=== PATIENT | male | born 1965 | race Two or more races ===

== ENCOUNTER 2024-09-23 09:22 | Emergency (ER) | payer MEDICAID, SELFPAY ==
[2024-09-23 10:09] VITALS: BP 137/86; PULSE 81; RESP 19; TEMP 37.1; O2SAT 98; BMI 26.9
--- NOTE | 2024-09-23 10:22 | XR_ITS ---
Examination: Testicular sonography complete TECHNIQUE: Grayscale sonographic images testes, assessment arterial inflow venous outflow Doppler spectral analysis carful analysis Exam date and time: September 23, 2024 1220 hours INDICATIONS: Right flank pain radiating to the right testis beginning 3 days ago. FINDINGS: Right testis 4.5 x 2.3 x 3.4 cm Epididymis 13 mm Arterial flow testicle. No testicular mass Left testis 4.5 x 2.3 x 2.7 cm Epididymis 14 mm Arterial flow testicle. No testicular mass Mild bilateral hydroceles IMPRESSION: No testicular torsion or testicular mass Mild bilateral hydroceles
--- NOTE | 2024-09-23 10:22 | XR_ITS ---
Examination: CT abdomen and pelvis without contrast. Coronal 3-D reconstructions. Sagittal 2-D reconstructions. Date and time of exam:September 23, 2024 1050 hours INDICATIONS: Right flank pain radiating to the right testicle beginning 3 days ago CTDI: vol (mGy): 8.29 DLP: (mGycm): 560 Technique: Axial images of the abdomen have been obtained, 3 mm slice thickness Intravenous contrast material has not been administered. Low dose protocols were performed. One or more of the following dose reduction techniques were used; automated exposure control, adjustment of the mA and/or KV according to patient size, use of iterative reconstruction technique. Findings: No focal liver or splenic lesions No gallstones No pancreatic or adrenal mass No renal or ureteral calculi, no hydronephrosis Aorta normal size Normal appendix No bowel obstruction Scattered colonic diverticulosis no diverticulitis No bladder mass or bladder calculi Tiny fat-containing inguinal hernias IMPRESSION: No renal or ureteral calculi, no hydronephrosis Normal appendix No bladder mass or bladder calculi Consider testicular sonography follow-up
--- NOTE | 2024-09-23 10:23 | XR_ITS ---
Examination: Lumbar spine 3 views Technique one AP lateral coned lateral lower lumbar spine 3 views Exam date and time: September 23, 2024 1003 hours INDICATIONS: Low back pain radiating to the testicles 2 days. FINDINGS: Adequate alignment lumbar vertebral bodies Mild lumbar spondylosis No lumbar fracture No significant lumbar disc narrowing No spondylolisthesis IMPRESSION: Mild lumbar spondylosis
--- NOTE | 2024-09-23 10:23 | PD.EDRME ---
Rapid Medical Screening Exam [facility] Arrival date/time: 09/23/24 09:22 59-year-old male presents to the emergency department with complaints of right flank pain that radiates frontal and into testicles for 2 days. No nausea no vomiting no fever. I have greeted and performed a focused initial assessment of this patient. Initial appropriate labs ordered at this time. A comprehensive ED assessment and evaluation of the patient and analysis of all test and completion of medical decision making process will be conducted by additional ED provider. Chief Complaint: Abdominal Pain Time Seen by Provider: 09/23/24 10:03 Vital signs: Vital Signs Temperature 98.8 F 09/23/24 10:09 Pulse Rate 81 09/23/24 10:09 Respiratory Rate 19 09/23/24 10:09 Blood Pressure 137/86 H 09/23/24 10:09 Pulse Oximetry (%) 98 09/23/24 10:09 Oxygen Delivery Method Room Air 09/23/24 10:09
[2024-09-23 10:34] LABS: Collection Type, Urine Clean Catch; RBC,Urine 0 /hpf (0-3)
[2024-09-23 10:49] LABS: Bilirubin,Urine Negative (Negative); Blood,Urine Negative (Negative); Clarity,Urine Clear (Clear/Hazy); Color,Urine Lt-Yellow (Lt Yel-Yel); Glucose, Urine 4+ (Negative); Ketones,Urine 1+ (Negative); Leukocyte Esterase,Urine Negative (Negative); Nitrite,Urine Negative (Negative); PH,Urine 5.5 (5.0-7.0); Protein,Urine Negative (Neg - Trace); Specific Gravity,Urine 1.028 (1.001-1.035); Squamous Epithelial Cell,Urine < 1 /hpf (0-5); Urobilinogen,Urine Negative mg/dL (0.0-1.0); WBC,Urine 1 /hpf (0-5)
[2024-09-23 11:28] LABS: Basophils % (Auto) 1 % (0-2.5); Eosinophils # (Auto) 0.2 Thou/mm3 (0.0-0.5); Eosinophils % (Auto) 3 % (0-10); Hematocrit 44.6 % (41.0-53.0); Hemoglobin 15.1 g/dL (13.5-16.0); Immature Granulocytes % (Auto) 0 % (0-0); Immature Granulocytes Auto 0.03 Thou/mm3 (0.00-0.00); Lymphocytes # (Auto) 1.5 Thou/mm3 (1.0-4.8); Lymphocytes % (Auto) 23 % (10-50); Mean Corpuscular HGB Conc 33.9 g/dl (31.0-37.0); Mean Corpuscular Volume 89 fL (80-100); Monocytes # (Auto) 0.5 Thou/mm3 (0.0-0.8); Monocytes % (Auto) 7 % (0-12); Neutrophils # (Auto) 4.5 Thou/mm3 (1.8-7.7); Neutrophils % (Auto) 67 % (37-80); Nucleated Red Blood Cell % 0 /100 WBC (0); Platelet Count 193 Thou/mm3 (140-440); RDW Standard Deviation 40.8 fL (35.1-43.9); Red Blood Count 5.04 Miln/mm3 (4.50-5.90); White Blood Count 6.8 Thou/mm3 (3.8-10.6)
[2024-09-23 11:45] LABS: Alanine Aminotransferase 15 U/L (10-49); Albumin, Serum 4.7 gm/dL (3.4-4.8); Albumin/Globulin Ratio 1.5 (1.2-2.2); Alkaline Phosphatase 111 U/L (46-116); Anion Gap 8 (7-16); Aspartate Amino Transferase 17 U/L (0-34); BUN/Creatinine Ratio 16 Ratio (12-20); Bilirubin,Total 0.7 mg/dL (0.3-1.2); Blood Urea Nitrogen 13 mg/dL (9-23); Calcium 9.4 mg/dL (8.3-10.6); Calcium (Corrected) 9.4 mg/dL (8.5-10.1); Carbon Dioxide 26.8 mMol/L (20.0-31.0); Chloride 102 mMol/L (98-107); Creatinine (Component) 0.8 mg/dL (0.6-1.3); Estimated Creatinine Clearance 104.6 mL/min (>60); Globulin 3.2 gm/dL (2.3-3.5); Glucose 140 mg/dL (74-106); Lipase 28 U/L (12-53); Osmolality,Calculated 275 (275-295); Potassium 4.5 mMol/L (3.4-5.1); Sodium 137 mMol/L (136-145); Total Protein 7.9 gm/dL (5.7-8.2); eGFR > 60 See Note
[2024-09-23 14:10] VITALS: BP 142/92; PULSE 76; RESP 17; TEMP 36.9; O2SAT 97
--- NOTE | 2024-09-23 14:34 | EDNOTE_ITS ---
ED Abdominal Pain RME/HPI General Chief Complaint: Abdominal Pain Stated complaint: ABD PAIN ON HIS RIGHT SIDE Time seen by provider: 09/23/24 10:03 Arrival date/time: 09/23/24 09:22 RME / HPI RME / HPI narrative: 09/23/24 09:22 59-year-old male presents to the emergency department with complaints of right flank pain that radiates frontal and into testicles for 2 days. No nausea no vomiting no fever. I have greeted and performed a focused initial assessment of this patient. Initial appropriate labs ordered at this time. A comprehensive ED assessment and evaluation of the patient and analysis of all test and completion of medical decision making process will be conducted by additional ED provider. DR. TREVER MARISCAL ED EVALUATION 59 year old male with history of diabetes presents to the ED for evaluation of right flank pain beginning 2 days ago. Described as aching in sensation that intermittently radiates down to his scrotum beginning yesterday. Denies any history of similar pain. Denies fevers, chills, chest pain, cough, shortness of breath, nausea, vomiting, diarrhea, or urinary symptoms. Related Data Allergies Allergy/AdvReac Type Severity Reaction Status Date / Time No Known Allergies Allergy Verified 09/23/24 09:26 Review of Systems Review of Systems Narrative Review of Systems: GEN: No fever, no chills, no weight loss EYES: No discharge, no visual changes, no pain HEENT: No ear pain, no congestion, no sore throat PULM: No shortness of breath, no cough, no congestion CV: No chest pain, no dyspnea on exertion, no palpitations GI: No nausea, no vomiting, no diarrhea, + pain, no constipation : +scrotal pain. No frequency, no urgency and no dysuria MUSC/SKEL No joint pain, + back pain SKIN: No rash NEURO: No weakness, no headache Past Medical History Social History SMOKING STATUS: Never smoker ED Exam Narrative Physical exam: GENERAL APPEARANCE: Well hydrated, well nourished, in no acute distress. VITALS: All vitals were reviewed and the pulse ox is 97% on room air which is normal according to my interpretation. HEENT: Normocephalic, atramatic, EOMI, EACs are patent. There is no bulge or retraction. Throat without erythema or exudate. Moist oromucosa. No jaundice NECK: Supple, no JVD or bruits. CARDIOVASCULAR: Heart regular without S3-S4 or murmur. No rubs or gallops. LUNGS/CHEST: Clear to auscultation bilaterally. No rales, rhonchi, or wheezing. Normal inspection. ABDOMEN: Soft, nontender, with normal bowel sounds. No pulsatile masses. No rebound, rigidity, or guarding. No incarcerated hernia. Normal inspection and palpation. EXTREMITIES: Normal inspection and palpation. No edema, clubbing, or cyanosis. Intact CSM SKIN: Warm and dry without rashes. Normal inspection. MUSCULOSKELETAL: Normal inspection. No gross deformity, full ROM all extremities NEURO: Alert and oriented x3. Cranial nerves II through XII grossly intact. There are no other motor or sensory deficits noted. PSYCHIATRIC: Normal mood and affect. No psychosis. Course Quality Measures none Orders Category Date Time Status CT abdomen pelvis wo con Stat Exams 09/23/24 10:22 Completed US testicular Stat Exams 09/23/24 10:22 Completed XR lumbar spine 2-3V Stat Exams 09/23/24 10:23 Completed CBC Stat Lab 09/23/24 11:21 Completed Comprehensive Metabolic Panel Stat Lab 09/23/24 11:21 Completed Lipase Stat Lab 09/23/24 11:21 Completed Urinalysis Stat Lab 09/23/24 10:30 Completed Vital Signs Vital signs: Vital Signs Temperature 98.8 F 09/23/24 10:09 Pulse Rate 81 09/23/24 10:09 Respiratory Rate 19 09/23/24 10:09 Blood Pressure 137/86 H 09/23/24 10:09 Pulse Oximetry (%) 98 09/23/24 10:09 Oxygen Delivery Method Room Air 09/23/24 10:09 Abdominal Pain MDM MDM Narrative [facility] Narrative:: IAlexsandra, yazmin scribing for and in the presence of Dr. Davies. CBC is negative. CMP and lipase are negative. UA is negative for bacteria. Lumbar spine x-rays interpreted by me: Normal alignment. No fracture. No dislocation. No collapse discs CT abdomen and pelvic reviewed by and interpreted by me as follow: No free air. No free fluid. No obstruction. Some degree of constipation. No stranding. Abdominal exam is completely benign. I am giving the patient copy of his x-ray report, CT report and ultrasound report to follow-up with PMD. Patient data External records reviewed:: [facility] previous records (Per EMR review, no previous visits for review ) Clinical information provided by:: patient Social determinants that could affect healthcare access:: alcohol use Patient has the following chronic illnesses:: Diabetes How is presenting disease/condition affected by chronic disease/condition?: uneffected by Evaluation data The following diagnostics were reviewed and interpreted by me:: lab results and radiology exam(s) Lab and/or radiology exams considered but not ordered:: None Interpretation Summary: Ordering Physician: Vero Conrad Date of Service: 09/23/24 Procedure(s): CT abdomen pelvis wo con Accession Number(s): [id number] cc: Era Tenorio; Kulwant Berg MD; Vero Conrad~ Examination: CT abdomen and pelvis without contrast. Coronal 3-D reconstructions. Sagittal 2-D reconstructions. Date and time of exam:September 23, 2024 1050 hours INDICATIONS: Right flank pain radiating to the right testicle beginning 3 days ago CTDI: vol (mGy): 8.29 DLP: (mGycm): 560 Technique: Axial images of the abdomen have been obtained, 3 mm slice thickness Intravenous contrast material has not been administered. Low dose protocols were performed. One or more of the following dose reduction techniques were used; automated exposure control, adjustment of the mA and/or KV according to patient size, use of iterative reconstruction technique. Findings: No focal liver or splenic lesions No gallstones No pancreatic or adrenal mass No renal or ureteral calculi, no hydronephrosis Aorta normal size Normal appendix No bowel obstruction Scattered colonic diverticulosis no diverticulitis No bladder mass or bladder calculi Tiny fat-containing inguinal hernias IMPRESSION: No renal or ureteral calculi, no hydronephrosis Normal appendix No bladder mass or bladder calculi Consider testicular sonography follow-up Dictated By: Kulwant Berg MD Signed By: <Electronically signed by Kulwant Berg MD in OV> 09/23/24 8170 Ordering Physician: Vero Conrad Date of Service: 09/23/24 Procedure(s): US testicular Accession Number(s): [id number] cc: Era Tenorio; Kulwant Berg MD; Vero Conrad~ Examination: Testicular sonography complete TECHNIQUE: Grayscale sonographic images testes, assessment arterial inflow venous outflow Doppler spectral analysis carful analysis Exam date and time: September 23, 2024 1220 hours INDICATIONS: Right flank pain radiating to the right testis beginning 3 days ago. FINDINGS: Right testis 4.5 x 2.3 x 3.4 cm Epididymis 13 mm Arterial flow testicle. No testicular mass Left testis 4.5 x 2.3 x 2.7 cm Epididymis 14 mm Arterial flow testicle. No testicular mass Mild bilateral hydroceles IMPRESSION: No testicular torsion or testicular mass Mild bilateral hydroceles Dictated By: Kulwant Berg MD Signed By: <Electronically signed by Kulwant Berg MD in OV> 09/23/24 1245 Ordering Physician: Vero Conrad Date of Service: 09/23/24 Procedure(s): XR lumbar spine 2-3V Accession Number(s): [id number] cc: Era Tenorio; Kulwant Berg MD; Vero Conrad~ Examination: Lumbar spine 3 views Technique one AP lateral coned lateral lower lumbar spine 3 views Exam date and time: September 23, 2024 1003 hours INDICATIONS: Low back pain radiating to the testicles 2 days. FINDINGS: Adequate alignment lumbar vertebral bodies Mild lumbar spondylosis No lumbar fracture No significant lumbar disc narrowing No spondylolisthesis IMPRESSION: Mild lumbar spondylosis Dictated By: Kulwant Berg MD Signed By: <Electronically signed by Kulwant Berg MD in OV> 09/23/24 1100 Medications / Prescriptions Medications or Prescriptions considered but not ordered:: None Medication administrations:: See above Consultations Consultation(s) initiated? (list below): No Diagnosis Differential diagnosis abdominal pain: abdominal pain, acute appendicitis, calculus of kidney, constipation, gastroenteritis and small bowel obstruction Most likely diagnosis given after review of the tests above:: Abdominal pain Admission Indicated Admission indicated?: not indicated Admission Request Was there a request for admission?: No Disposition Plan Disposition Plan: Discharge Discharge Attestation Discharge Attestation: The patient and all family members were given an opportunity to ask questions and understood the discharge instructions. Discharge instructions specifically effects, indications for sooner follow up or return to the emergency department, and the expected course of current diagnosis. Patient condition: Stable Discharge Plan Plan Patient Disposition: HOME (Self Care) Disposition Comment: Stable for DC home Prescriptions/Referrals Referrals: Era Tenorio CUT PRESSMAN [Primary Care Provider] - In 1 week Problem List Clinical Impression: Abdominal pain Patient/Caregiver Discharge Instructions Education Materials: ED Flank Pain, Uncertain Cause Additional Instructions: Motrin can be taken for pain. It appears that you may be constipated. Please try OTC laxative such as milk of magnesia or magnesium citrate. Follow-up with your doctor in 3 days. Return to nearest ER if condition worsens or if new symptoms develop. Print Language: Australian Stand Alone Forms: Flavia Award Info., Patient Portal Info Letter
== END 2024-09-23 14:50 | disposition home or self-care (01) ==
PROVIDERS: Nurse Practitioner Primary Care; Emergency Provider Emergency Medicine; PCP Nurse Practitioner Family
DX: K59.00 Constipation, unspecified (principal); M47.816 Spondylosis without myelopathy or radiculopathy, lumbar region; N43.3 Hydrocele, unspecified
CPT/HCPCS: 36415; 72100; 74176; 76870; 80053; 81001; 83690; 85025; 99284

== ENCOUNTER 2024-11-06 07:26 | Emergency (ER) | payer MEDICAID, SELFPAY ==
[2024-11-06 07:36] VITALS: BP 143/88; PULSE 71; RESP 16; TEMP 36.7; O2SAT 98; BMI 32.1
--- NOTE | 2024-11-06 07:44 | XR_ITS ---
Examination: CT abdomen and pelvis without contrast. Coronal 3-D reconstructions. Sagittal 2-D reconstructions. Date and time of exam:November 06, 2024 0834 hours Comparison September 23, 2024 INDICATIONS: Onset right-sided flank pain beginning this morning CTDI: vol (mGy): 7.79 DLP: (mGycm): 491 Technique: Axial images of the abdomen have been obtained, 3 mm slice thickness Intravenous contrast material has not been administered. Low dose protocols were performed. One or more of the following dose reduction techniques were used; automated exposure control, adjustment of the mA and/or KV according to patient size, use of iterative reconstruction technique. Findings: No focal liver or splenic lesions Contracted gallbladder No pancreatic or adrenal mass Minimal perinephric stranding Normal appendix No renal or ureteral calculi, no hydronephrosis No bowel obstruction or diverticulitis Mild thickening of the anterior urinary bladder wall up to 4 mm Transverse prostate dimension 4 cm Moderate osteopenia IMPRESSION: No renal or ureteral calculi, no hydronephrosis Minimal perinephric stranding Normal appendix Mild thickening of the anterior urinary bladder wall, cystitis included in the differential
--- NOTE | 2024-11-06 07:45 | EDNOTE_ITS ---
ED Back Injury Pain RME/HPI General Chief Complaint: Back Pain/Injury Stated Complaint: RIGHT FLANK/BACK PAIN X 1 WK SINCE LAST ER VISIT Time Seen by Provider: 11/06/24 07:40 Source: patient Arrival date/time: 11/06/24 07:26 59-year-old male with no known medical history presents to the emergency room with a chief complaint of right-sided flank pain and back pain x 1 week Mode of arrival: ambulatory Limitations: no limitations Related Data Allergies Allergy/AdvReac Type Severity Reaction Status Date / Time No Known Allergies Allergy Verified 11/06/24 07:28 Review of Systems Review of Systems Systems Reviewed: All systems reviewed, normal except as documented Constitutional Constitutional: Reports system reviewed and no additional complaints, except as documented, Denies fatigue, Denies fever(s), Denies headache(s) and Denies weakness Eyes Eyes: Reports system reviewed and no additional complaints, except as documented, Denies blurry vision and Denies change in vision ENT Ears, Nose, Mouth, and Throat: Reports system reviewed and no additional complaints, except as documented, Denies otalgia, Denies headache(s), Denies nasal congestion, Denies throat swelling and Denies vertigo Cardiovascular Cardiovascular: Reports system reviewed and no additional complaints, except as documented, Denies chest pain, Denies dyspnea and Denies dyspnea on exertion Respiratory Respiratory: Reports system reviewed and no additional complaints, except as documented, Denies chest congestion, Denies cough, Denies dyspnea, Denies dyspnea on exertion and Denies wheezing Gastrointestinal Gastrointestinal: Reports system reviewed and no additional complaints, except as documented, Denies abdominal pain, Denies cramping, Denies nausea and Denies vomiting Genitourinary Genitourinary: Reports system reviewed and no additional complaints, except as documented, Denies dysuria and Denies hematuria Musculoskeletal Musculoskeletal: Reports system reviewed and no additional complaints, except as documented and Denies back pain Integumentary/Breasts Skin/Breast: Reports system reviewed and no additional complaints, except as documented and Denies wounds Neurologic Neurologic: Reports system reviewed and no additional complaints, except as documented, Denies confusion, Denies headache(s), Denies lack of coordination, Denies vertigo and Denies weakness Psychiatric Psychiatric: Reports system reviewed and no additional complaints, except as documented, Denies anxiety, Denies confusion, Denies depression, Denies paranoia, Denies suicidal ideation and Denies tactile hallucinations Endocrine Endocrine: Reports system reviewed and no additional complaints, except as documented and Denies fatigue Hematologic/Lymphatic Hematologic/Lymphatic: Reports system reviewed and no additional complaints, except as documented and Denies lymphadenopathy Allergic/Immunologic Allergic/Immunologic: Reports system reviewed and no additional complaints, except as documented, Denies throat swelling, Denies urticaria and Denies wheezing ED Exam General Limitations: Present no limitations General appearance: Present alert and in no apparent distress Head Head exam: Present atraumatic Eye Eye exam: Present normal appearance, PERRL and EOMI ENT ENT exam: Present normal exam, normal oropharynx and mucous membranes moist Neck Neck exam: Present normal inspection, full ROM and trachea midline Chest Chest inspection: Present normal inspection and symmetric chest wall rise Respiratory Respiratory exam: Present normal lung sounds bilaterally Cardiovascular Cardiovascular exam: Present regular rate, normal rhythm and normal heart sounds Abdominal Exam Abdominal exam: Present soft and normal bowel sounds Extremities Exam Extremities exam: Present normal inspection and full ROM Back Exam Back exam: Present normal inspection, full ROM, CVA tenderness (R) and vertebral tenderness Neurological Exam Neurological exam: Present alert, oriented X3 and CN II-XII intact Psychiatric Psychiatric exam: Present normal affect and normal mood Skin Skin exam: Present warm, dry, intact and normal color Course Quality Measures none Orders Category Date Time Status CT abdomen pelvis wo con Stat Exams 11/06/24 07:44 Completed CBC Stat Lab 11/06/24 07:55 Completed CMP [Comprehensive Metabolic Panel] Stat Lab 11/06/24 07:55 Completed Lipase Stat Lab 11/06/24 07:55 Completed UA [Urinalysis] Stat Lab 11/06/24 08:19 Completed Urine Culture Stat Lab 11/06/24 08:19 Received Ketorolac Inj [Toradol Inj] Med 11/06/24 07:44 Discontinued 30 mg IM X1 ONE Vital Signs Vital signs: Vital Signs Temperature 98.1 F 11/06/24 07:36 Pulse Rate 71 11/06/24 07:36 Respiratory Rate 16 11/06/24 07:36 Blood Pressure 143/88 H 11/06/24 07:36 Pulse Oximetry (%) 98 11/06/24 07:36 Oxygen Delivery Method Room Air 11/06/24 07:36 O2 saturation 98% within normal limits Back Pain / Injury MDM Narrative MDM Narrative:: 59-year-old male with no known medical history presents to the emergency room with a chief complaint of right-sided flank pain and back pain x 1 week Patient is hemodynamically stable and in no apparent distress Physical examination shows right-sided CVA tenderness. Patient denies any pain that radiates to the right lower abdomen. Patient denies any dysuria or any discharge. The patient has a soft nontender abdomen. CT of the abdomen and pelvis was completed and there were no acute findings. CBC CMP and UA were negative for any acute findings Patient was discharged and educated to follow-up with primary care provider and return to the emergency room for any evidence of worsening signs or symptoms Patient data [facility] records [facility]:: [facility] Clinical information provided by:: patient Social determinants that could affect healthcare access:: none Patient has the following chronic illnesses:: No chronic illness How is presenting disease/condition affected by chronic disease/condition?: no chronic disease Evaluation data The following diagnostics were reviewed and interpreted by me:: lab results and radiology exam(s) Lab and/or radiology exams considered but not ordered:: Labs and radiology exams considered and ordered Interpretation Summary: CT abdomen and pelvis-Findings: No focal liver or splenic lesions Contracted gallbladder No pancreatic or adrenal mass Minimal perinephric stranding Normal appendix No renal or ureteral calculi, no hydronephrosis No bowel obstruction or diverticulitis Mild thickening of the anterior urinary bladder wall up to 4 mm Transverse prostate dimension 4 cm Moderate osteopenia IMPRESSION: No renal or ureteral calculi, no hydronephrosis Minimal perinephric stranding Normal appendix Mild thickening of the anterior urinary bladder wall, cystitis included in the differential Medications / Prescriptions Medications or Prescriptions considered but not ordered:: Medication given Medication administrations:: Medication Administration History Discontinued Medications Ketorolac Tromethamine (Ketorolac Inj 60 Mg/2 Ml Vial) 30 mg IM X1 ONE Stop: 11/06/24 07:45 Last Admin: 11/06/24 07:49 Dose: 30 mg Documented By: KM Medication given Consultations Consultation(s) initiated? (list below): No Diagnosis Differential diagnosis back pain/injury: sciatica, strain of lumbar region, renal colic, thoracic back pain, discitis and other Most likely diagnosis given after review of the tests above:: Lumbar back pain Admission Indicated Admission indicated?: not indicated Admission Request Was there a request for admission?: No Disposition Plan Disposition Plan: Discharge Discharge Attestation Discharge Attestation: The patient and all family members were given an opportunity to ask questions and understood the discharge instructions. Discharge instructions specifically effects, indications for sooner follow up or return to the emergency department, and the expected course of current diagnosis. Patient condition: Stable Discharge Plan Plan Patient Disposition: HOME (Self Care) Disposition Comment: Stable Prescriptions/Referrals Referrals: Era Tenorio MD [Primary Care Provider] - In 1 week Problem List Clinical Impression: Strain of lumbar region Patient/Caregiver Discharge Instructions Education Materials: ED Back Sprain/Strain Additional Instructions: Por favor, consulte con mathis m?dico de cabecera en las pr?ximas 24 a 48 horas. Se realiz? lubna tomograf?a computarizada de abdomen y pelvis y no se detectaron hallazgos agudos. No hay c?lculos renales. Mathis an?lisis de donny y orina no detectaron hallazgos agudos. Por favor, consulte con mathis m?dico de cabecera para un mejor manejo de mathis dolor de espalda. Si hay evidencia de empeoramiento de los signos o s?ntomas, regrese a la filipe de emergencias de inmediato. Print Language: Slovak Stand Alone Forms: Flavia Award Info., Patient Portal Info Letter PA/CLINICAL REHAB SPECIALIST Supervising Physician PA/CLINICAL REHAB SPECIALIST Supervising Physician: Dr. Sebastian
[2024-11-06] MEDS: KETOROLAC INJ 60 MG/2 ML VIAL 30 MG IM (07:49)
[2024-11-06 08:36] LABS: Collection Type, Urine Clean Catch
[2024-11-06 08:49] LABS: Basophils # (Auto) 0.1 Thou/mm3 (0.0-0.2); Basophils % (Auto) 1 % (0-2.5); Eosinophils # (Auto) 0.3 Thou/mm3 (0.0-0.5); Eosinophils % (Auto) 4 % (0-10); Hematocrit 40.4 % (41.0-53.0); Hemoglobin 13.9 g/dL (13.5-16.0); Immature Granulocytes % (Auto) 0 % (0-0); Immature Granulocytes Auto 0.01 Thou/mm3 (0.00-0.00); Lymphocytes # (Auto) 2.3 Thou/mm3 (1.0-4.8); Lymphocytes % (Auto) 33 % (10-50); Mean Corpuscular HGB Conc 34.4 g/dl (31.0-37.0); Mean Corpuscular Hemoglobin 30.5 pg (25.0-35.0); Mean Corpuscular Volume 89 fL (80-100); Monocytes # (Auto) 0.6 Thou/mm3 (0.0-0.8); Monocytes % (Auto) 9 % (0-12); Neutrophils # (Auto) 3.8 Thou/mm3 (1.8-7.7); Neutrophils % (Auto) 54 % (37-80); Nucleated Red Blood Cell % 0 /100 WBC (0); Platelet Count 189 Thou/mm3 (140-440); RDW Standard Deviation 41.3 fL (35.1-43.9); Red Blood Count 4.56 Miln/mm3 (4.50-5.90); White Blood Count 7.1 Thou/mm3 (3.8-10.6)
[2024-11-06 09:07] LABS: Alanine Aminotransferase 18 U/L (10-49); Albumin, Serum 4.4 gm/dL (3.4-4.8); Albumin/Globulin Ratio 1.6 (1.2-2.2); Alkaline Phosphatase 99 U/L (46-116); Anion Gap 8 (7-16); Aspartate Amino Transferase 24 U/L (0-34); BUN/Creatinine Ratio 23 Ratio (12-20); Bilirubin,Total 0.7 mg/dL (0.3-1.2); Blood Urea Nitrogen 16 mg/dL (9-23); Calcium 9.7 mg/dL (8.3-10.6); Calcium (Corrected) 9.7 mg/dL (8.5-10.1); Carbon Dioxide 28.3 mMol/L (20.0-31.0); Chloride 106 mMol/L (98-107); Creatinine (Component) 0.7 mg/dL (0.6-1.3); Estimated Creatinine Clearance 118.1 mL/min (>60); Globulin 2.7 gm/dL (2.3-3.5); Glucose 116 mg/dL (74-106); Lipase 32 U/L (12-53); Osmolality,Calculated 285 (275-295); Potassium 3.8 mMol/L (3.4-5.1); Sodium 142 mMol/L (136-145); Total Protein 7.1 gm/dL (5.7-8.2); eGFR > 60 See Note
[2024-11-06 09:09] LABS: Bilirubin,Urine Negative (Negative); Blood,Urine Negative (Negative); Clarity,Urine Clear (Clear/Hazy); Color,Urine Lt-Yellow (Lt Yel-Yel); Glucose, Urine 4+ (Negative); Ketones,Urine Negative (Negative); Leukocyte Esterase,Urine Negative (Negative); Nitrite,Urine Negative (Negative); PH,Urine 5.5 (5.0-7.0); Protein,Urine Negative (Neg - Trace); RBC,Urine 2 /hpf (0-3); Specific Gravity,Urine 1.035 (1.001-1.035); Squamous Epithelial Cell,Urine < 1 /hpf (0-5); Urobilinogen,Urine Negative mg/dL (0.0-1.0); WBC,Urine 1 /hpf (0-5)
== END 2024-11-06 10:52 | disposition home or self-care (01) ==
PROVIDERS: Nurse Practitioner Family; Emergency Provider Emergency Medicine; PCP Obstetrics & Gynecology
DX: S39.012A Strain of muscle, fascia and tendon of lower back, initial encounter (principal); X58.XXXA Exposure to other specified factors, initial encounter
CPT/HCPCS: 36415; 74176; 80053; 81001; 83690; 85025; 87086; 96372; 99284; J1885

== ENCOUNTER 2025-07-11 17:15 | Inpatient (IN) | payer MEDICAID, SELFPAY ==
--- NOTE | 2025-07-11 17:26 | XR_ITS ---
Examination: CT brain head without contrast. 2-D sagittal coronal reconstructions Date and time of exam: 07/11/2025 at 5:33 p.m. INDICATION: Left-sided weakness, stroke protocol COMPARISON: None CTDI: vol (mGy): 55.4 DLP: (mGycm): 1167 Technique: Multiple CT axial sections of the brain have been obtained, 5 mm slice thickness. Contrast has not been administered. 2-D sagittal, coronal reconstructions have been obtained Low dose protocols were performed. One or more of the following dose reduction techniques were used; automated exposure control, adjustment of the mA and/or KV according to patient size, use of iterative reconstruction technique. FINDINGS: BRAIN PARENCHYMA: The brain parenchyma appears normal for age. Arango-white matter junctions are intact; no evidence for acute transcortical ischemic infarction. No intraparenchymal hemorrhage, discrete mass or midline shift. No cerebellar tonsillar ectopia. No apparent acute abnormality of the cerebellum. VENTRICLES / EXTRA-AXIAL SPACES: No hydrocephalus, extra-axial hematoma or mass. CALVARIUM: No skull fracture or concerning focal lesion. SINUSES: No significant opacification of the paranasal sinuses. The visualized mastoid air cells are clear. OTHER EXTRACRANIAL STRUCTURES: No findings of acute significance. IMPRESSION: Negative noncontrast head CT for acute intracranial abnormality. Findings were discussed with Dr. Christensen via telephone on 07/11/2025 5:37 PM.
--- NOTE | 2025-07-11 17:26 | XR_ITS ---
Examination: CTA carotids with intravenous contrast CTA brain, head with intravenous contrast. 2-D sagittal, coronal reconstructions. 3-D reconstructions. Exam date and time: 07/11/2025 at 5:40 p.m. INDICATION: Left-sided weakness and numbness. Stroke protocol. COMPARISON: Concurrent noncontrast head CT CTDI: vol (mGy) 40.9 DLP: (mGycm) 516 Technique: Multiple CTA axial brain, head carotid images post intravenous contrast injection 100 cc, [id number]. 2-D sagittal, coronal reconstructions. 3-D reconstructions, 3-D post processing including vascular maximum intensity projection images. Low dose protocols were performed. One or more of the following dose reduction techniques were used; automated exposure control, adjustment of the mA and/or KV according to patient size, use of iterative reconstruction technique. Findings: CT angiography of the head: Moderate stenosis is present at the distal portion of the M1 segment of the left MCA. The right MCA as well as the bilateral ICAs, ACAs, media services director, distal vertebral arteries and basilar artery are well opacified without apparent significant stenosis, occlusion or aneurysm formation. The dural venous sinuses are patent and well-opacified. Franco-white differentiation is maintained. No evidence of intracranial hemorrhage. No intracranial mass or evidence of mass-effect. No midline shift or herniation. No extra-axial collections. The ventricles are normal in size and morphology. No evidence of hydrocephalus. CT angiography of the neck: There is a separate origin of the left subclavian artery, left common carotid artery, and brachiocephalic artery from the arch. Bilateral cervical carotid arteries are patent and well-opacified. There is mild plaque at the left carotid bulb and proximal ICA but there is no significant stenosis of the ICA on either side. The bilateral ICAs are tortuous. Both vertebral arteries are patent without evidence of flow-limiting stenosis or dissection. No evidence of acute arterial injury or contrast extravasation. No acute fracture or subluxation is demonstrated in the cervical spine. Paraspinous soft tissues are unremarkable. The visualized lung apices are clear. IMPRESSION: CTA head shows moderate stenosis of the distal left M1 segment without occlusion. No significant arterial stenosis, occlusion or aneurysm is otherwise detected in the remainder of the intracranial circulation. Negative CTA neck for hemodynamically significant stenosis, dissection, or occlusion. No acute intracranial abnormality.
[2025-07-11 17:28] VITALS: BP 177/89; PULSE 89; RESP 17; TEMP 36.8; O2SAT 98
--- NOTE | 2025-07-11 17:38 | ESCONSULT_ITS ---
Tele Neuro Consultation Consultation Date 07/11/25 Most Recent Vital Signs Last Vital Signs Temp 98.3 F 07/11/25 17:28 Pulse 89 07/11/25 17:28 Resp 17 07/11/25 17:28 BP 177/89 H 07/11/25 17:28 Pulse Ox 98 07/11/25 17:28 O2 Del Method Room Air 07/11/25 17:28 Consultation Narrative [facility] Tele[facility]urology Consult [facility] Patient Name:???Dani Richardson Date of :???1965 Identification Number:??? Date of Service:???07/11/2025 17:22:51 Diagnosis:?I63.89 - Cerebrovascular accident (CVA) due to other mechanism (HCCC) Impression: ?Patient is a 60 year old man, presenting with headache and dizziness, started 07/10/2025 at 1330 PST. He also experienced right arm and leg numbness/ weakness at same time yesterday. Symptoms were progressive and worse today so patient came to the ED for workup. Not on blood thinners, PMHX of DM. ? ?CT head was performed, no acute findings on my review. ? ?The patient was not a candidate for IV thrombolytics due to LKN > 4.5 hrs ago. ? ?Recommend further stroke workup as below. ? Our recommendations are outlined below. Recommendations: ? Stroke/Telemetry Floor ? Neuro Checks (Q4) ? Bedside Swallow Eval ? DVT Prophylaxis ? IV Fluids, Normal Saline ? Head of Bed 30 Degrees ? Euglycemia and Avoid Hyperthermia (PRN Acetaminophen) ? Antihypertensives PRN if Blood pressure is greater than 220/120 or there is a concern for End organ damage/contraindications for permissive HTN. If blood pressure is greater than 220/120 give labetalol PO or IV or Vasotec IV with a goal of 15% reduction in BP during the first 24 hours. ?MRI head without contrast ?ASA 81 mg daily, plavix 300 mg x1 then 75 mg daily for 21 days then ASA monotherapy. ?Statin for LDL < 70 ?TTE echo with bubble study, if none in last 6 months ?Telemetry to screen for pAFib, if negative consider further cardiac event monitor ?Labs: TSH, HgA1c, lipid profile if not recently performed ?Smoking cessation if applicable ?Diabetes control Hg A1c < 6.5 % skilled nursing if applicable Sign Out: ? Discussed with Emergency Department Provider Advanced Imaging:Advanced imaging has been ordered. Results pending. Metrics: Last Known Well: 07/10/2025 13:30:00 Dispatch Time: 07/11/2025 17:22:51 Arrival Time: 07/11/2025 17:15:00 Initial Response Time: 07/11/2025 17:25:23Symptoms: dizziness, right arm numbness. Initial patient interaction: 07/11/2025 17:26:56 NIHSS Assessment Completed: 07/11/2025 17:36:24Patient is not a candidate for Thrombolytic. Thrombolytic Medical Decision: 07/11/2025 17:36:25Patient was not deemed candidate for Thrombolytic because of following reasons: LKW outside 4.[address] Head: I personally reviewed all the CT images that were available to me and it showed: no acute hemorrhage. Primary Provider Notified of Diagnostic Impression and Management Plan on: 07/11/2025 17:38:49 History of Present Illness:Patient is a 60 year old Male. Patient was brought by private transportation with symptoms of dizziness, right arm numbness. Patient is a 60 year old man, presenting with headache and dizziness, started 07/10/2025 at 1330 PST. He also experienced right arm and leg numbness/ weakness at same time yesterday. Symptoms were progressive and worse today so patient came to the ED for workup. Not on blood thinners, PMHX of DM. ? Past Medical History: ?Diabetes Mellitus ?There is no history of Stroke Medications: No Anticoagulant use? No Antiplatelet use Reviewed EMR for current medications Allergies:? Reviewed Social History: Drug Use: No Family History: There is no family history of premature cerebrovascular disease pertinent to this consultation ROS : 14 Points Review of Systems was performed and was negative except mentioned in HPI. Past Surgical History: There Is No Surgical History Contributory To Today?s Visit ? Examination: BP(177/89),?Pulse(84),?Blood Glucose(115) 1A: Level of Consciousness - Alert; keenly responsive?+ 0 1B: Ask Month and Age - Both Questions Right?+ 0 1C: Blink Eyes & Squeeze Hands - Performs Both Tasks?+ 0 2: Test Horizontal Extraocular Movements - Normal?+ 0 3: Test Visual Escudero - No Visual Loss?+ 0 4: Test Facial Palsy (Use Grimace if Obtunded) - Normal symmetry?+ 0 5A: Test Left Arm Motor Drift - No Drift for 10 Seconds?+ 0 5B: Test Right Arm Motor Drift - No Drift for 10 Seconds?+ 0 6A: Test Left Leg Motor Drift - No Drift for 5 Seconds?+ 0 6B: Test Right Leg Motor Drift - No Drift for 5 Seconds?+ 0 7: Test Limb Ataxia (FNF/Heel-Enamorado) - No Ataxia?+ 0 8: Test Sensation - Mild-Moderate Loss: Less Sharp/More Dull?+ 1 9: Test Language/Aphasia - Normal; No aphasia?+ 0 10: Test Dysarthria - Normal?+ 0 11: Test Extinction/Inattention - No abnormality?+ 0 NIHSS Score:?1 NIHSS Free Text :?right sided numbness (face, arm and leg) Pre-Morbid Modified [place] Scale: 0 Points = No symptoms at all Spoke with :?Clovis Gallegos This consult was conducted in real time using interactive audio and video technology. Patient was informed of the technology being used for this visit and agreed to proceed. Patient located in hospital and provider located at home/office setting. Patient is being evaluated for possible acute neurologic impairment and high probability of imminent or life-threatening deterioration. I spent total of 30 minutes providing care to this patient, including time for face to face visit via telemedicine, review of medical records, imaging studies and discussion of findings with providers, the patient and/or family. Dr Elliott Desir [facility] For Inpatient follow-up with [facility] physician please call [facility] at . As we are not an outpatient service for any post hospital discharge needs please contact the hospital for assistance. If you have any questions for the [facility] physicians or need to reconsult for clinical or diagnostic changes please contact us via [facility] at . Non-radiologist review of imaging performed to assist with emergent clinical decision-making. Remote physician workstations do not possess the same resolution, calibration, or diagnostic capabilities as hospital-based radiology reading stations, and formal radiologist read is necessary. Signature :?Elliott Desir ?
[2025-07-11 17:43] LABS: Basophils # (Auto) 0.1 Thou/mm3 (0.0-0.2); Basophils % (Auto) 1 % (0-2.5); Eosinophils # (Auto) 0.4 Thou/mm3 (0.0-0.5); Eosinophils % (Auto) 5 % (0-10); Hematocrit 46.8 % (41.0-53.0); Hemoglobin 15.7 g/dL (13.5-16.0); Immature Granulocytes Auto 0.01 Thou/mm3 (0.00-0.00); Lymphocytes # (Auto) 2.2 Thou/mm3 (1.0-4.8); Lymphocytes % (Auto) 31 % (10-50); Mean Corpuscular HGB Conc 33.5 g/dl (31.0-37.0); Mean Corpuscular Hemoglobin 29.9 pg (25.0-35.0); Mean Corpuscular Volume 89 fL (80-100); Monocytes # (Auto) 0.4 Thou/mm3 (0.0-0.8); Monocytes % (Auto) 6 % (0-12); Neutrophils # (Auto) 3.9 Thou/mm3 (1.8-7.7); Neutrophils % (Auto) 56 % (37-80); Nucleated Red Blood Cell # 0.00 Thou/mm3 (0.00-0.00); Nucleated Red Blood Cell % 0 /100 WBC (0); Platelet Count 181 Thou/mm3 (140-440); RDW Standard Deviation 42.4 fL (35.1-43.9); Red Blood Count 5.25 Miln/mm3 (4.50-5.90); White Blood Count 7.0 Thou/mm3 (3.8-10.6)
[2025-07-11 17:44] VITALS: PULSE 77; PULSE 79; RESP 18; RESP 99; BMI 28.7
[2025-07-11 17:47] VITALS: BP 152/98; PULSE 75; RESP 17; O2SAT 99
--- NOTE | 2025-07-11 17:48 | PD.EDNEURO ---
Neuro Symptoms Deficit-RME/HPI General Chief Complaint: Neuro Symptoms/Deficit Stated Complaint: DIZZY SINCE 1201, NUMBNESS RIGHT SIDE SINCE 1230 Time Seen by Provider: 07/11/25 17:26 Arrival date/time: 07/11/25 17:15 Limitations: no limitations RME / HPI RME / HPI Narrative: 60 year old male with history of diabetes presents to the ED for evaluation of dizziness, right-sided numbness, and right leg weakness after waking from his nap at 12:30 PM today. Patient states he got home from work from an overnight shift this morning and went to bed at his usual state of health at 01:00 AM. States he woke up at about noon feeling at his usual state of health. However, while trying to get out of bed noted to have right leg weakness, right-sided numbness, and felt dizzy (described as feeling unsteady). No history of similar symptoms. No headache or vision changes. No unilateral weakness or loss of movement. No recent illness. Related Data Allergies Allergy/AdvReac Type Severity Reaction Status Date / Time No Known Allergies Allergy Verified 07/11/25 17:26 Review of Systems Review of Systems Systems Reviewed: All systems reviewed, normal except as documented Past Medical History Past Medical History CARDIAC: Negative Congestive Heart Failure RESPIRATORY: Negative Chronic Obstructive Pulmonary Disease (COPD) GENITOURINARY: Negative Renal Disease ENDOCRINE: Positive Diabetes Mellitus Type 2; Negative Diabetes Mellitus Type 1 Social History SMOKING STATUS: Never smoker ED Exam General Limitations: Present no limitations General appearance: Present alert and in no apparent distress Head Head exam: Present atraumatic Eye Eye exam: Present normal appearance, PERRL and EOMI ENT ENT exam: Present normal exam, normal oropharynx and mucous membranes moist Neck Neck exam: Present normal inspection, full ROM and trachea midline Chest Chest inspection: Present normal inspection and symmetric chest wall rise Respiratory Respiratory exam: Present normal lung sounds bilaterally Cardiovascular Cardiovascular exam: Present regular rate, normal rhythm and normal heart sounds Abdominal Exam Abdominal exam: Present soft and normal bowel sounds Extremities Exam Extremities exam: Present full ROM and other (Diminished sensation right lateral arm, leg, and cheek, muscle strength normal, no drift, rapid finger alternating normal) Back Exam Back exam: Present normal inspection and full ROM Neurological Exam Neurological exam: Present alert, oriented X3, CN II-XII intact and other (Diminished sensation right lateral arm, leg, and cheek, muscle strength normal, no drift, rapid finger alternating normal) Psychiatric Psychiatric exam: Present normal affect and normal mood Skin Skin exam: Present warm, dry, intact and normal color Course Quality Measures Suspected type of Stroke: Non Acute Last known well (date): 07/11/25 Last known well (time): 12:00 Tenecteplase given: Reason(s) TPA not given: Outside the time window not given stroke Orders Category Date Time Status Admit to Inpatient Status Routine Admission 07/11/25 18:29 Active Patient Condition Routine Admission 07/11/25 18:29 Ordered Activity as Tolerated Routine Care 07/11/25 18:31 Ordered Bedside Blood Glucose NOW Care 07/11/25 17:26 Active COVID-19 Screening Questionnaire NOW Care 07/11/25 17:45 Active Aluminum Pool Installer NOW Care 07/11/25 17:26 Active Continuous Pulse Oximetry NOW Care 07/11/25 17:26 Completed Decision to Admit X1 Care 07/11/25 17:45 Completed Head of Bed Elevation NOW Care 07/11/25 18:35 Active Insert IV NOW Care 07/11/25 17:26 Active MRI Screening NOW Care 07/11/25 18:38 Active NIH Stroke Scale now Care 07/11/25 17:26 Active NPO NOW Care 07/11/25 17:26 Active Neuro Check Q15MIN Care 07/11/25 17:26 Completed Neuro Check Q4H Care 07/11/25 18:35 Active Notify provider NEEDED Care 07/11/25 18:29 Active Nurse Swallow Screen x1 Care 07/11/25 17:26 Active Consult to Neurology / Tele-Neurology Routine Cons 07/11/25 17:26 Active CA echo doppler complete Routine Exams 07/11/25 18:[address] angio stroke protocol Stat Exams 07/11/25 17:[address] stroke protocol Stat Exams 07/11/25 17:26 Completed MR stroke protocol brain wo con with MRA head and neck Exams 07/11/25 Ordered Routine A1C [Glycohemoglobin w (eAG)] Routine Lab 07/11/25 18:40 Ordered Alcohol, Blood Medical Stat Lab 07/11/25 17:25 Completed B-Type Natriuretic Peptide Stat Lab 07/11/25 17:25 Completed CBC AM DRAW Lab 07/12/25 05:00 Ordered CBC AM DRAW Lab 07/13/25 05:00 Ordered CBC AM DRAW Lab 07/14/25 05:00 Ordered CBC AM DRAW Lab 07/15/25 05:00 Ordered CBC AM DRAW Lab 07/16/25 05:00 Ordered CBC AM DRAW Lab 07/17/25 05:00 Ordered CBC AM DRAW Lab 07/18/25 05:00 Ordered CBC AM DRAW Lab 07/19/25 05:00 Ordered CBC AM DRAW Lab 07/20/25 05:00 Ordered CBC AM DRAW Lab 07/21/25 05:00 Ordered CBC Stat Lab 07/11/25 17:25 Completed Comprehensive Metabolic Panel AM DRAW Lab 07/12/25 05:00 Ordered Comprehensive Metabolic Panel AM DRAW Lab 07/13/25 05:00 Ordered Comprehensive Metabolic Panel AM DRAW Lab 07/14/25 05:00 Ordered Comprehensive Metabolic Panel AM DRAW Lab 07/15/25 05:00 Ordered Comprehensive Metabolic Panel AM DRAW Lab 07/16/25 05:00 Ordered Comprehensive Metabolic Panel AM DRAW Lab 07/17/25 05:00 Ordered Comprehensive Metabolic Panel AM DRAW Lab 07/18/25 05:00 Ordered Comprehensive Metabolic Panel AM DRAW Lab 07/19/25 05:00 Ordered Comprehensive Metabolic Panel AM DRAW Lab 07/20/25 05:00 Ordered Comprehensive Metabolic Panel AM DRAW Lab 07/21/25 05:00 Ordered Comprehensive Metabolic Panel Stat Lab 07/11/25 17:25 Completed Drug Screen,Urine Stat Lab 07/11/25 17:26 Ordered Lipid Panel AM DRAW Lab 07/12/25 05:00 Ordered Magnesium AM DRAW Lab 07/12/25 05:00 Ordered Magnesium Stat Lab 07/11/25 17:25 Completed Partial Thromboplastin Time Stat Lab 07/11/25 17:25 Completed Phosphorous AM DRAW Lab 07/12/25 05:00 Ordered Prothrombin Time with INR Stat Lab 07/11/25 17:25 Completed TSH [Thyroid Stimulating Hormone] Stat Lab 07/11/25 18:40 Ordered Thyroid Stimulating Hormone AM DRAW Lab 07/12/25 05:00 Ordered Troponin I Stat Lab 07/11/25 17:25 Completed Urinalysis Stat Lab 07/11/25 17:26 Ordered Urine Culture Stat Lab 07/11/25 17:26 Ordered Acetaminophen Tab [Tylenol Tab] Med 07/11/25 18:29 Active 650 mg PO Q6H PRN Aspirin Med 07/11/25 17:42 Discontinued 325 mg PO X1 ONE Aspirin [Ecotrin] Med 07/12/25 09:00 Active 81 mg PO QDAY Atorvastatin Calcium [Lipitor] Med 07/11/25 21:00 Active 40 mg PO HS Clopidogrel [Plavix] Med 07/11/25 17:42 Discontinued 300 mg PO X1 ONE Clopidogrel [Plavix] Med 07/12/25 09:00 Active 75 mg PO QDAY Heparin Inj Med 07/11/25 22:00 Active 5,000 unit SC Q8HR Labetalol IV [Trandate IV] Med 07/11/25 18:36 Active 10 mg IVP Q15MIN PRN Ondansetron Inj [Zofran Inj] Med 07/11/25 18:29 Active 4 mg IVP Q6H PRN Sodium Chloride 0.9% 1000 ml [Ns] 1,000 ml Med 07/11/25 18:35 Active IV 75 mls/hr Sodium Chloride 0.9% 1000 ml [Ns] 1,000 ml Med 07/11/25 17:30 Active IV Q10H Code Status Routine Oth 07/11/25 18:29 Ordered Oxygen Delivery NOW RT 07/11/25 17:26 Active Vital Signs Vital signs: Vital Signs Temperature 98.3 F 07/11/25 17:28 Pulse Rate 89 07/11/25 17:28 Respiratory Rate 17 07/11/25 17:28 Blood Pressure 177/89 H 07/11/25 17:28 Pulse Oximetry (%) 98 07/11/25 17:28 Oxygen Delivery Method Room Air 07/11/25 17:28 Pulse ox is 98% on room air which is adequate. Neuro Symptoms / Deficit MDM Narrative MDM Narrative:: Alexsandra Dominguez am scribing for and in the presence of Dr. Christensen. Patient data External records reviewed:: [facility] previous records Clinical information provided by:: patient Social determinants that could affect healthcare access:: none Patient has the following chronic illnesses:: Diabetes How is presenting disease/condition affected by chronic disease/condition?: no chronic disease Evaluation data The following diagnostics were reviewed and interpreted by me:: lab results and radiology exam(s) Lab and/or radiology exams considered but not ordered:: None Interpretation Summary: Ordering Physician: Clovis Christensen MD Date of Service: 07/11/25 Procedure(s): CT stroke protocol Accession Number(s): [id number] cc: Clovis Christensen MD; Bulmaro Marcum DO~ Examination: CT brain head without contrast. 2-D sagittal coronal reconstructions Date and time of exam: 07/11/2025 at 5:33 p.m. INDICATION: Left-sided weakness, stroke protocol COMPARISON: None CTDI: vol (mGy): 55.4 DLP: (mGycm): 1167 Technique: Multiple CT axial sections of the brain have been obtained, 5 mm slice thickness. Contrast has not been administered. 2-D sagittal, coronal reconstructions have been obtained Low dose protocols were performed. One or more of the following dose reduction techniques were used; automated exposure control, adjustment of the mA and/or KV according to patient size, use of iterative reconstruction technique. FINDINGS: BRAIN PARENCHYMA: The brain parenchyma appears normal for age. Arango-white matter junctions are intact; no evidence for acute transcortical ischemic infarction. No intraparenchymal hemorrhage, discrete mass or midline shift. No cerebellar tonsillar ectopia. No apparent acute abnormality of the cerebellum. VENTRICLES / EXTRA-AXIAL SPACES: No hydrocephalus, extra-axial hematoma or mass. CALVARIUM: No skull fracture or concerning focal lesion. SINUSES: No significant opacification of the paranasal sinuses. The visualized mastoid air cells are clear. OTHER EXTRACRANIAL STRUCTURES: No findings of acute significance. IMPRESSION: Negative noncontrast head CT for acute intracranial abnormality. Findings were discussed with Dr. Christensen via telephone on 07/11/2025 5:37 PM. Dictated By: Bulmaro Marcum DO Signed By: <Electronically signed by Bulmaro Marcum DO in OV> 07/11/25 1737 Ordering Physician: Clovis Christensen MD Date of Service: 07/11/25 Procedure(s): CT angio stroke protocol Accession Number(s): [id number] cc: Clovis Christensen MD; NO PRIMARY/FAMILY,PHYSICIAN; Bulmaro Marcum DO~ Examination: CTA carotids with intravenous contrast CTA brain, head with intravenous contrast. 2-D sagittal, coronal reconstructions. 3-D reconstructions. Exam date and time: 07/11/2025 at 5:40 p.m. INDICATION: Left-sided weakness and numbness. Stroke protocol. COMPARISON: Concurrent noncontrast head CT CTDI: vol (mGy) 40.9 DLP: (mGycm) 516 Technique: Multiple CTA axial brain, head carotid images post intravenous contrast injection 100 cc, [id number]. 2-D sagittal, coronal reconstructions. 3-D reconstructions, 3-D post processing including vascular maximum intensity projection images. Low dose protocols were performed. One or more of the following dose reduction techniques were used; automated exposure control, adjustment of the mA and/or KV according to patient size, use of iterative reconstruction technique. Findings: CT angiography of the head: Moderate stenosis is present at the distal portion of the M1 segment of the left MCA. The right MCA as well as the bilateral ICAs, ACAs, feller seam operator, distal vertebral arteries and basilar artery are well opacified without apparent significant stenosis, occlusion or aneurysm formation. The dural venous sinuses are patent and well-opacified. Franco-white differentiation is maintained. No evidence of intracranial hemorrhage. No intracranial mass or evidence of mass-effect. No midline shift or herniation. No extra-axial collections. The ventricles are normal in size and morphology. No evidence of hydrocephalus. CT angiography of the neck: There is a separate origin of the left subclavian artery, left common carotid artery, and brachiocephalic artery from the arch. Bilateral cervical carotid arteries are patent and well-opacified. There is mild plaque at the left carotid bulb and proximal ICA but there is no significant stenosis of the ICA on either side. The bilateral ICAs are tortuous. Both vertebral arteries are patent without evidence of flow-limiting stenosis or dissection. No evidence of acute arterial injury or contrast extravasation. No acute fracture or subluxation is demonstrated in the cervical spine. Paraspinous soft tissues are unremarkable. The visualized lung apices are clear. IMPRESSION: CTA head shows moderate stenosis of the distal left M1 segment without occlusion. No significant arterial stenosis, occlusion or aneurysm is otherwise detected in the remainder of the intracranial circulation. Negative CTA neck for hemodynamically significant stenosis, dissection, or occlusion. No acute intracranial abnormality. Dictated By: Bulmaro Marcum DO Signed By: <Electronically signed by Bulmaro Marcum DO in OV> 07/11/25 1805 Medications / Prescriptions Medications or Prescriptions considered but not ordered:: None Medication administrations:: Medication Administration History Acetaminophen (Acetaminophen 325 Mg Tablet) 650 mg PO Q6H PRN PRN Reason: For Fever>100.4 or Pain 1-3 Stop: 08/10/25 18:28 Aspirin (Aspirin Ec 81 Mg Tabec) 81 mg PO QDAY [facility] Stop: 08/11/25 08:59 Atorvastatin Calcium (Atorvastatin Calcium 20 Mg Tablet) 40 mg PO HS [facility]ERSON Stop: 08/10/25 20:59 Clopidogrel Bisulfate (Clopidogrel Bisulfate 75 Mg Tablet) 75 mg PO QDAY [facility] Stop: 08/11/25 08:59 Heparin Sodium (Porcine) (Heparin Sod Inj 5000 Unit/Ml Vial) 5,000 unit SC Q8HR [facility]ERSON Stop: 07/25/25 21:59 Sodium Chloride (Ns) 1,000 mls @ 50 mls/hr IV Q10H [facility]ERSON Stop: 08/10/25 17:29 Last Admin: 07/11/25 17:52 Dose: 50 mls/hr Documented By: EF Sodium Chloride (Ns) 1,000 mls @ 75 mls/hr IV .[id number] [facility] Stop: 08/10/25 18:34 Labetalol HCl (Labetalol Inj 5 Mg/Ml Vial 20 Ml) 10 mg IVP Q15MIN PRN PRN Reason: Hypertensive Emergency Ondansetron HCl (Ondansetron Inj 2 Mg/Ml Inj 2 Ml) 4 mg IVP Q6H PRN; Protocol PRN Reason: NAUSEA OR VOMITING Stop: 08/10/25 18:28 Discontinued Medications Aspirin (Aspirin 325 Mg Tablet) 325 mg PO X1 ONE Stop: 07/11/25 17:43 Last Admin: 07/11/25 17:51 Dose: 325 mg Documented By: EF Clopidogrel Bisulfate (Clopidogrel Bisulfate 75 Mg Tablet) 300 mg PO X1 ONE Stop: 07/11/25 17:43 Last Admin: 07/11/25 17:51 Dose: 300 mg Documented By: EF See above Consultations Consultation(s) initiated? (list below): Yes Consultation #1 (Physician, Specialty, Details): I spoke with teleneurologist Dr. Desir. States patient is not a TNK candidate. Time: 17:38 Consultation #2 (Physician, Specialty, Details): I spoke with hospitalist team for admission. Time: 17:45 Diagnosis Neuro Differential Diagnosis: subarachnoid hemorrhage, cerebrovascular accident and transient cerebral ischemia Most likely diagnosis given after review of the tests above:: Dizziness CVA Admission Indicated Admission indicated?: indicated Admission Request Was there a request for admission?: Yes Admission Attestation Admission request attestation: Discussed case with [] from Hospitalist service regarding admission. Discussed patients ED course, exam findings, labs, and radiology results. The Hospitalist [agrees,declines] to accept the patient for admission. Disposition Plan Disposition Plan: Admit Discharge Plan Plan Patient Disposition: Admit Acute Care w/in Hospital Prescriptions/Referrals Referrals: No Primary/Family,Physician [Primary Care Provider] - In 1 week Problem List Clinical Impression: Cerebrovascular accident, Dizziness Patient/Caregiver Discharge Instructions Print Language: Nauruan Stand Alone Forms: Flavia Award Info., Patient Portal Info Letter
[2025-07-11] MEDS: CLOPIDOGREL BISULFATE 75 MG TABLET 300 MG PO (17:51)
[2025-07-11] MEDS: SODIUM CHLORIDE 0.9% 1000 ML 1,000 ML 50 ML IV (17:52)
[2025-07-11 18:00] LABS: INR 1.0 (0.9-1.3); Partial Thromboplastin Time 26.8 Seconds (22.0-36.0); Prothrombin Time 10.2 Seconds (9.0-12.2)
[2025-07-11 18:01] LABS: B-Type Natriuretic Peptide < 20 pg/mL (0-100)
[2025-07-11 18:10] LABS: Alanine Aminotransferase 18 U/L (10-49); Albumin, Serum 5.1 gm/dL (3.4-4.8); Albumin/Globulin Ratio 2.0 (1.2-2.2); Alcohol, Blood Medical < 3.0 mg/dL (0-10.0); Alkaline Phosphatase 126 U/L (46-116); Anion Gap 9 (7-16); Aspartate Amino Transferase 26 U/L (0-34); BUN/Creatinine Ratio 9 Ratio (12-20); Bilirubin,Total 0.5 mg/dL (0.3-1.2); Blood Urea Nitrogen 8 mg/dL (9-23); Calcium 9.7 mg/dL (8.3-10.6); Calcium (Corrected) 9.7 mg/dL (8.5-10.1); Carbon Dioxide 27.9 mMol/L (20.0-31.0); Chloride 105 mMol/L (98-107); Creatinine (Component) 0.9 mg/dL (0.6-1.3); Estimated Creatinine Clearance 98.7 mL/min (>60); Globulin 2.5 gm/dL (2.3-3.5); Glucose 115 mg/dL (74-106); Magnesium 2.0 mg/dL (1.6-2.6); Osmolality,Calculated 282 (275-295); Potassium 4.3 mMol/L (3.4-5.1); Sodium 142 mMol/L (136-145); Total Protein 7.6 gm/dL (5.7-8.2); Troponin I < 0.020 ng/mL (0.0-0.045); eGFR > 60 See Note
--- NOTE | 2025-07-11 18:27 | ESHP_ITS ---
<Statement entered by Shivani Marx MD - 07/24/25 07:57> I reviewed above note and agree with findings and plans. I have also personally examined the patient with medicine team and went over assessment and plan with medical team including internship coordinator and resident physician. <Statement entered by Lizeth Muro MD - 07/12/25 09:25> Patient was seen and examined by me personally. I have directly supervised and reviewed documentation by the team resident and agree with its findings with any exceptions or additional findings as below. Plan of care was discussed with the attending, Dr. Marx. Patient is a 60-year-old male with past medical history of non-insulin dependent type 2 diabetes who presented to the ED with right sided arm weakness, dizziness, and blurry vision starting last night around 11 pm while he was getting dressed for work as he works night shifts. Patient denied any previous similar episodes or history of stroke. Currently symptoms are resolving, vision is normal. On examination patient had 5/5 strength bilaterally, no ataxia, and no vision deficits. Cranial nerves are all intact. Patient will be admitted for stroke protocol to rule out CVA. Lizeth Muro, PGY-3 Documentation for date of: 07/11/25 HPI History of Present Illness History of present illness: Patient is a Citizen [place]-speaking 60-year-old M with a PMH of [id number]-T2DM who presented on 07/11/2025 with a chief complaint of right sided weakness, headache, and dizziness that began the day prior in the evening. He states that at the time he had been in the middle of changing his clothes and that he also felt lightheaded when he would bend down or stand back up. The lightheadedness is characterized not as a spinning sensation as in vertigo but unsteadiness and feeling faint. His neurological symptoms had slowly worsened since onset which was what drove him to seek care at the hospital; however, at the time of interview, patient actually reported that his symptoms seemed slightly improved from how they were when they were at their worst. He denies any similar prior episodes as well as any recent fever, cough, chest pain, palpitations, shortness of breath, abdominal pain, nausea/vomiting, urinary symptoms, or lower extremity edema. PMH: As above PSH: None Medications: Janumet, Jardiance, glipizide Allergies: None FH: T2DM in mother and brother SH: Began drinking at age 27 and continues to drink now at age 60, says he drinks 10 beers in 1 sitting on Saturdays usually In the ED, vitals showed: BP 177/89 HR 89 RR 17 Temp 98.3 SpO2 98% on room air CBC was WNL. Coagulation panel was WNL. CMP showed hemoglobin A1c 7.4 and TSH 2.66. UA showed 4+ glucose but was otherwise WNL. UDS was grossly negative. Imagin/[address] without contrast was negative for any acute intracranial abnormality. 07/11 head/neck CTA showed moderate stenosis of the distal left M1 segment without occlusion but was otherwise negative for significant arterial stenosis, occlusion, or aneurysm of the remainder of the intracranial circulation and negative for hemodynamically significant stenosis, dissection, or occlusion of the neck vasculature. No acute intracranial abnormality noted. In the ED, patient was given aspirin 325 mg p.o. x 1, Plavix 300 mg p.o. x 1, 2 L NS maintenance fluid IV, and started on atorvastatin 80 mg p.o. at bedtime and heparin 5K SC every 8 hours. TNK was not administered as patient's LKWT was greater than 4.5 hours ago. Patient was admitted for the work-up and management of stroke-like symptoms. Neurology was consulted and is closely following the case. Review of Systems Review of Systems Systems Reviewed: All systems reviewed, normal except as documented Exam Vital Signs Temp Pulse Resp BP Pulse Ox O2 Del Method 98.3 F 75 17 152/98 H 99 Room Air 07/11/25 17:28 07/11/25 17:47 07/11/25 17:47 07/11/25 17:47 07/11/25 17:47 07/11/25 17:47 Narrative Exam Physical Exam: General: Alert, no acute distress. Skin: Warm, dry, intact, no obvious rash. Head: Normocephalic, atraumatic. Eye: Normal conjunctiva, PERRL. Throat: Oral mucosa moist. Cardiovascular: Regular rate and rhythm, no murmur, normal peripheral perfusion, no edema. Respiratory: Lungs are clear to auscultation, respirations non labored, no crackles, no wheezing. Gastrointestinal: Soft, nontender, non-distended. Psychiatric: Cooperative, appropriate affect. Neuro: Mental status: Alert, oriented, appropriately responding to commands. Speech/Language: Speech fluent, no word finding difficulty or paraphasic errors observed. Language-comprehension, repetition and naming intact. No dysarthria noted. Memory: Grossly recent and remote intact. Cranial Nerves: II: No visual deficits and visual escudero full to confrontation. Pupils 3-5 mm size BL round, reactive to light. III, IV, : EOMI, no nystagmus, no ptosis, no APD, smooth pursuit without saccadic intrusion, conjugate horizontal gaze intact. V: Gross sensation intact in V1 distribution to crude touch. Decreased right- sided sensation of V2 and V3 distribution to crude touch. Jaw strength normal. VII: No facial asymmetry, able to smile symmetrically and BL good eye closure. VIII: Hearing intact in both ears per finger rubbing. IX, X: Symmetrical palate elevation, uvula in midline. XI: Symmetrical head rotation and shoulder shrug. IX, XII: Midline tongue protrusion. No fasciculations or atrophy noted. Sensory examination Right-sided crude touch of dorsal hand reduced as compared to left-sided counterpart. Crude touch in other areas of bilateral upper and lower extremity grossly intact. Motor examination No drift in bilateral upper extremity 5/5 strength in bilateral upper extremity 5/5 strength in bilateral lower extremity Coordination Kadhhm-fl-miep test performed without any difficulty. No dysmetria. 1A: Level of Consciousness - Alert; keenly responsive?+ 0 1B: Ask Month and Age - Both Questions Right?+ 0 1C: Blink Eyes & Squeeze Hands - Performs Both Tasks?+ 0 2: Test Horizontal Extraocular Movements - Normal?+ 0 3: Test Visual Escudero - No Visual Loss?+ 0 4: Test Facial Palsy (Use Grimace if Obtunded) - Normal symmetry?+ 0 5A: Test Left Arm Motor Drift - No Drift for 10 Seconds?+ 0 5B: Test Right Arm Motor Drift - No Drift for 10 Seconds?+ 0 6A: Test Left Leg Motor Drift - No Drift for 5 Seconds?+ 0 6B: Test Right Leg Motor Drift - No Drift for 5 Seconds?+ 0 7: Test Limb Ataxia (FNF/Heel-Enamorado) - No Ataxia?+ 0 8: Test Sensation - Mild-Moderate Loss: Less Sharp/More Dull?+ 1 9: Test Language/Aphasia - Normal; No aphasia?+ 0 10: Test Dysarthria - Normal?+ 0 11: Test Extinction/Inattention - No abnormality?+ 0 NIHSS Score: 1 NIHSS Free Text: right-sided numbness of face (sparing forehead) as well as hand Results: Labs 07/11/25 17:25 07/11/25 17:25 Labs: Short CBC 07/11/25 Range/Units 17:25 WBC 7.0 (3.8-10.6) Thou/mm3 Hgb 15.7 (13.5-16.0) g/dL Hct 46.8 (41.0-53.0) % Plt Count 181 (140-440) Thou/mm3 BMP 07/11/25 17:25 Sodium 142 Potassium 4.3 Chloride 105 Carbon Dioxide 27.9 BUN 8 L Creatinine 0.9 Glucose 115 H Calcium 9.7 Cardiac Enzymes 07/11/25 Range/Units 17:25 Troponin I < 0.020 (0.0-0.045) ng/mL Liver Function 07/11/25 Range/Units 17:25 Total Bilirubin 0.5 (0.3-1.2) mg/dL AST 26 (0-34) U/L ALT 18 (10-49) U/L Alkaline Phosphatase 126 H (46-116) U/L Albumin 5.1 H (3.4-4.8) gm/dL Quality Measures Quality Measures VTE prophylaxis and stroke Suspected type of Stroke: Non Acute Last known well (date): 07/11/25 Last known well (time): 12:00 Tenecteplase given: Reason(s) Tenecteplase not given: Outside the time window not given Rehab services: PT evaluation ordered and Speech Language Pathology eval ordered VTE Prophylaxis: pharmaceutical Antithrombotic by day 2:: not indicated (describe) Statin ordered: <75 y/o high intensity dose Anticoagulation ordered for A-fib or flutter (current or hx): not indicated Medications Home Medications and Allergies Home Medications ?Medication ?Instructions ?Recorded ?Confirmed ?Type empagliflozin 25 mg tablet 25 mg PO DAILY 07/11/2503/28 History (Jardiance) sitagliptin phosphate 50 1 tab PO BID 07/11/25 History mg-metformin 1,000 mg tablet (Janumet) Allergies Allergy/AdvReac Type Severity Reaction Status Date / Time No Known Allergies Allergy Verified 07/11/25 17:26 Visit Medications Sodium Chloride (Ns) 1,000 mls @ 50 mls/hr IV Q10H JERSON Stop: 08/10/25 17:29 Last Admin: 07/11/25 17:52 Dose: 50 mls/hr Discontinued Medications Aspirin (Aspirin 325 Mg Tablet) 325 mg PO X1 ONE Stop: 07/11/25 17:43 Last Admin: 07/11/25 17:51 Dose: 325 mg Clopidogrel Bisulfate (Clopidogrel Bisulfate 75 Mg Tablet) 300 mg PO X1 ONE Stop: 07/11/25 17:43 Last Admin: 07/11/25 17:51 Dose: 300 mg Assessment & Plan Plan Patient is a Citizen [place]-speaking 60-year-old M with a PMH of [id number]-T2DM who presented on 07/11/2025 with a chief complaint of right sided weakness, headache, and dizziness that began the day prior in the evening. Patient was admitted for the work-up and management of stroke-like symptoms. #Stroke-like symptoms Patient initially presented on 07/11 with right sided weakness, headache, and dizziness that began in the evening of 07/10 07/[address] showed no acute intracranial abnormality 07/11 head/neck CTA also negative PMH of T2DM (HgbA1c 7.4, 07/11/25) and 07/11 admission BP of 177/89 ACSVD Score: ___ (calculate after lipid panel obtained) Given loading dose of aspirin 325 mg x 1 and Plavix 300 mg x 1 in the ED DDx: TIA, acute ischemic stroke, hemiplegic migraine Dx: -Ordered head MRI, showed ___ -Ordered echocardiogram with bubble study, showed ___ -Ordered lipid panel, showed ___ -Ordered hemoglobin A1c, showed 7.4 -Ordered TSH, showed 2.66 WNL Rx: -PO atorvastatin 80 mg qHS -PO aspirin 81 mg qD -PO Plavix 75 mg qD for 21 days [07/12--] -PO/OR acetaminophen 650 mg prn for T > 100.3 -Heparin 5K SC q8HR for DVT prophylaxis -Head of bed elevation > 30 degrees -Permissive hypertension of SBP < 220 or DBP < 120 or concern for end organ damage (if parameters exceeded, use labetalol 10 mg IV q15MIN prn up to 3 times) -Ordered PT referral -Ordered speech evaluation referral -Neurology consulted, appreciate recommendations #Gis-[id number]-[id number]-T2DM 07/11 admission blood glucose 115 On home empagliflozin 25 mg PO qD and sitagliptin + metformin hydrochloride (Janumet) 1 tab PO BID Dx: -07/11/25 hemoglobin A1c was 7.4 as previously mentioned Rx: -Insulin sliding scale Hospital Management: Disposition: Admitted to [facility] for the work-up and management of stroke-like symptoms. Diet: Carbohydrate Consistent Low GI Prophylaxis: Not Indicated Bowel Prophylaxis: None DVT Prophylaxis: Heparin 5K SC q8HR CODE STATUS: Full Code I have examined the patient and conferred with my attending, Dr. Marx, and my senior resident, Dr. Muro, regarding them. Malik Serrano, DO PGY-1 Internal Medicine
--- NOTE | 2025-07-11 18:41 | ECHO_ITS ---
Patient Info Name: Dani Richardson Age: 60 years : 1965 Gender: Male Ht: 178 cm Wt: 93 kg BSA: 2.17 m2 BP: 119 / 71 mmHg Heart Rhythm: Sinus Rhythm Exam Date: 07/13/2025 8:47 AM Admit Date: 07/11/2025 Site: [facility] Patient Status: I Technical Quality: Fair Exam Type: CA echo doppler complete Senior Recruitment Consultant: Sana London Ordering Physician: Malik Serrano Study Info Indications stroke protocol PFO r/o - Primary Location: S2NX Left Ventricular Outflow Tract Name Value Normal LVOT 2D LVOT Diameter 2.1 cm LVOT Doppler LVOT Peak Velocity 116 cm/s LVOT Mean Gradient 2 mmHg LVOT VTI 24 cm LVOT VTI/AV VTI Ratio 0.9 LVOT Stroke Volume 83 ml Pulmonic Valve Name Value Normal PV Doppler PV Peak Velocity 95 cm/s Mitral Valve Name Value Normal MV Doppler MV Decel [place] 401 cm/s2 MV PHT 55 ms MV Area (PHT) 4.0 cm2 4.0-5.0 MV Diastolic Function MV E Peak Velocity 76 cm/s MV A Peak Velocity 98 cm/s MV E/A 0.8 MV Annular TDI MV Septal e' Velocity 6.3 cm/s MV E/e' (Septal) 12.1 MV Lateral e' Velocity 8.1 cm/s MV E/e' (Lateral) 9.5 MV e' Average 7.18 cm/s MV E/e' (Average) 10.8 Tricuspid Valve Name Value Normal TV Annular TDI TV Lateral Teri s' Velocity 14.6 cm/s >=9.5 Aorta Name Value Normal Ascending Aorta Ao Root Diameter (MM) 3.3 cm Ao Root Diam Index (MM) 1.5 cm/m2 Ao Root Diameter (2D) 3.3 cm Ao Root Diam Index (2D) 1.5 cm/m2 Aortic Valve Name Value Normal AV 2D/MM AV Cusp Sep (MM) 2.1 cm AV Doppler AV Peak Velocity 122 cm/s AV Mean Gradient 3 mmHg AV VTI 26 cm AV Area (Cont Eq VTI) 3.3 cm2 >=3.0 AV Area (Cont Eq Paco) 3.3 cm2 AV DI (Paco) 0.95 AV Regurgitation 2D LVOT Area 3.5 cm2 Ventricles Name Value Normal LV Dimensions 2D/MM IVS Diastolic Thickness (2D) 0.9 cm 0.6-1.0 LVID Diastole (2D) 5.0 cm 4.2-5.8 LVIW Diastolic Thickness (2D) 0.9 cm 0.6-1.0 LVID Systole (2D) 3.4 cm 2.5-4.0 LVOT Diameter 2.1 cm LV Mass (2D Cubed) 158.21 g 88.00-224.00 LV Mass Index (2D Cubed) 73 g/m2 49-115 Relative Wall Thickness (2D) 0.36 <=0.42 IVS/LVIW Diastolic Thickness (2D) 1.00 0.00-1.50 LV Fractional Shortening/Ejection Fraction 2D/MM LV Fractional Shortening (2D) 32 % 25-43 LV EF (2D Teichholz) 60 % LV Diastolic Volume (4C MOD) 51 ml LV EF (4C MOD) 55 % LV Diastolic Volume (2C MOD) 103 ml LV EF (2C MOD) 53 % LV Diastolic Length (4C) 6.2 cm LV Systolic Length (4C) 4.9 cm LV Stroke Volume (4C MOD) 29 ml RV Dimensions 2D/MM TV Lateral Teri s' Velocity 14.6 cm/s >=9.5 Atria Name Value Normal LA Dimensions LA Dimension (2D) 2.8 cm 3.0-4.0 LA Dimen Index (2D) 1.3 cm/m2 LA Dimension (MM) 3.5 cm 3.0-4.0 LA Volume (4C A-L) 31 ml LA Volume (BP A-L) 37 ml Left Ventricle Left ventricular chamber dimension is normal. Unable to accurately determine LVEF. There is normal geometry noted in the left ventricle. Left ventricular segmental wall motion is normal. There is grade I diastolic dysfunction in the left ventricle. Right Ventricle Right ventricular chamber dimension is normal. Right ventricular systolic function is normal. Left Atrium Left atrial chamber dimension is normal. Right Atrium Right atrial chamber dimension is normal. Aortic Valve The aortic valve is trileaflet. There is no aortic valve sclerosis. There is no aortic valve stenosis with a peak velocity of 122 cm/s, mean gradient of 3 mmHg, and aortic valve area of 3.3 cm2. There is no aortic valve regurgitation. Pulmonic Valve The pulmonic valve is normal. There is no pulmonic valve stenosis. There is no pulmonic regurgitation. Mitral Valve The mitral valve has normal leaflets. There is no mitral valve stenosis. There is trace mitral valve regurgitation. Tricuspid Valve The tricuspid valve leaflets are normal. There is no tricuspid valve stenosis. There is trace tricuspid valve regurgitation. Unable to estimate pulmonary artery systolic pressure due to inadequate tricuspid regurgitant envelope. Pericardium/Pleural The pericardium appears normal. There is no pericardial effusion. No pleural effusion visualized. Aorta The aortic measurements are indexed to age and body surface area. Summary 1. The echocardiogram is normal by two-dimensional, color flow imaging, and Doppler interrogation. 2. Left ventricle size is normal and systolic function is normal. Estimated ejection fraction is 55-60%. There is grade I diastolic dysfunction. There is normal geometry noted. 3. Right ventricle chamber size is normal, and systolic function is normal. 4. Negative bubble study. 5. There is trace mitral valve regurgitation. 6. There is trace tricuspid valve regurgitation. 7. No evidence of PFO. Report Signatures Finalized by Valentin Krause on 07/13/2025 10:49 AM
[2025-07-11 19:09] LABS: Glucose Estimated Average 166 mg/dL (80-131); Hemoglobin A1C 7.4 % Hgb (4.8-6.0)
[2025-07-11 19:14] LABS: Thyroid Stimulating Hormone 2.66 uIU/mL (0.55-4.78)
[2025-07-11] MEDS: SODIUM CHLORIDE 0.9% 1000 ML 1,000 ML 75 ML IV (19:15)
[2025-07-11 19:32] LABS: Collection Type, Urine Catheter
[2025-07-11 19:50] LABS: Bilirubin,Urine Negative (Negative); Blood,Urine Negative (Negative); Clarity,Urine Clear (Clear/Hazy); Color,Urine Lt-Yellow (Lt Yel-Yel); Glucose, Urine 4+ (Negative); Ketones,Urine Negative (Negative); Leukocyte Esterase,Urine Negative (Negative); Nitrite,Urine Negative (Negative); PH,Urine 6.5 (5.0-7.0); Protein,Urine Negative (Neg - Trace); RBC,Urine 1 /hpf (0-3); Squamous Epithelial Cell,Urine < 1 /hpf (0-5); Urobilinogen,Urine Negative mg/dL (0.0-1.0); WBC,Urine < 1 /hpf (0-5)
[2025-07-11 19:55] LABS: Specific Gravity,Urine 1.015 (1.001-1.035)
[2025-07-11 20:19] VITALS: PULSE 66; RESP 20; RESP 95
[2025-07-11 20:51] LABS: Amphetamine/Methamp Scrn,U Negative (Negative); Barbiturate Screen,Urine Negative (Negative); Benzodiazepines Screen,Urine Negative (Negative); Benzoylecgonine Screen, Ur Negative (Negative); Fentanyl Screen,Urine Negative (Negative); Opiate Screen,Urine Negative (Negative); THC Screen,Urine Negative (Negative)
[2025-07-11 21:48] VITALS: BP 137/86; PULSE 60; RESP 19; TEMP 36; O2SAT 98
[2025-07-11] MEDS: ATORVASTATIN CALCIUM 20 MG TABLET 40 MG PO (22:08)
[2025-07-11] MEDS: HEPARIN SOD INJ 5000 UNIT/ML VIAL SC (22:09)
[2025-07-11 22:18] VITALS: PULSE 67
[2025-07-12] VITALS (9 sets, daily range): BP systolic 120–132; BP diastolic 73–85; PULSE 55–71; RESP 13–96; TEMP 36.1–36.6; O2SAT 94–99; BMI 27.8
--- NOTE | 2025-07-12 | XR_ITS ---
Examinations: MRI Brain without intravenous contrast. MRA brain without intravenous contrast. MRA carotids without intravenous contrast 3-D vascular reconstructions Date and time of exam: July 12, 2025, 1426 hours INDICATIONS: Stroke protocol, right-sided body numbness and dizziness beginning 2 days ago Technique: Multiple axial and sagittal images of the brain have been obtained MRA brain carotid images without contrast obtained, including 3-D postprocessing, vascular maximum intensity projection images Findings: Sellaturcica is not enlarged. The optic chiasm and infundibular stalk are not remarkable. Prepontine and interpeduncular cisterns are not enlarged. No localized enlargement of the medulla or harrison. Fourth ventricle and cerebellar tonsils normal in position. Subacute hemorrhage is not seen. Fourth ventricle is midline. Mass in the cerebellopontine angle region is not evident. 7th and 8th nerve complexes exhibits symmetry. Globes are symmetrical with no retro-orbital mass. Increased white matter signal mild Diffusion-weighted images demonstrate 5 mm focus restricted diffusion left thalamus Mass-effect upon the ventricular system is not identified. MRA carotid images degraded by patient motion. MRA brain images no large vessel occlusions Impression: 5 mm acute left thalamic infarct
[2025-07-12] MEDS: HEPARIN SOD INJ 5000 UNIT/ML VIAL SC ×3 (05:16→21:05)
[2025-07-12 06:45] LABS: Basophils # (Auto) 0.0 Thou/mm3 (0.0-0.2); Basophils % (Auto) 1 % (0-2.5); Eosinophils # (Auto) 0.3 Thou/mm3 (0.0-0.5); Eosinophils % (Auto) 5 % (0-10); Hematocrit 38.1 % (41.0-53.0); Hemoglobin 12.9 g/dL (13.5-16.0); Immature Granulocytes Auto 0.01 Thou/mm3 (0.00-0.00); Lymphocytes # (Auto) 2.3 Thou/mm3 (1.0-4.8); Lymphocytes % (Auto) 36 % (10-50); Mean Corpuscular HGB Conc 33.9 g/dl (31.0-37.0); Mean Corpuscular Hemoglobin 30.1 pg (25.0-35.0); Mean Corpuscular Volume 89 fL (80-100); Monocytes # (Auto) 0.5 Thou/mm3 (0.0-0.8); Monocytes % (Auto) 8 % (0-12); Neutrophils # (Auto) 3.2 Thou/mm3 (1.8-7.7); Neutrophils % (Auto) 51 % (37-80); Nucleated Red Blood Cell # 0.00 Thou/mm3 (0.00-0.00); Nucleated Red Blood Cell % 0 /100 WBC (0); Platelet Count 144 Thou/mm3 (140-440); RDW Standard Deviation 42.5 fL (35.1-43.9); Red Blood Count 4.29 Miln/mm3 (4.50-5.90); White Blood Count 6.3 Thou/mm3 (3.8-10.6)
[2025-07-12 07:16] LABS: Alanine Aminotransferase 13 U/L (10-49); Anion Gap 11 (7-16); Aspartate Amino Transferase 22 U/L (0-34); BUN/Creatinine Ratio 11 Ratio (12-20); Bilirubin,Total 0.8 mg/dL (0.3-1.2); Blood Urea Nitrogen 9 mg/dL (9-23); Calcium 8.8 mg/dL (8.3-10.6); Carbon Dioxide 26.3 mMol/L (20.0-31.0); Cardiac Risk Estimate 3.0 RATIO (4.0-6.7); Chloride 105 mMol/L (98-107); Cholesterol 103 mg/dL (132-200); Creatinine (Component) 0.8 mg/dL (0.6-1.3); Estimated Creatinine Clearance 109.7 mL/min (>60); Glucose 78 mg/dL (74-106); HDL Cholesterol 34 mg/dL (40-60); LDL Cholesterol,Calculated 41 mg/dL (0-130); Magnesium 1.9 mg/dL (1.6-2.6); Osmolality,Calculated 280 (275-295); Phosphorous 3.5 mg/dL (2.4-5.1); Potassium 3.7 mMol/L (3.4-5.1); Sodium 142 mMol/L (136-145); Thyroid Stimulating Hormone 2.81 uIU/mL (0.55-4.78); Total Protein 5.8 gm/dL (5.7-8.2); Triglycerides 140 mg/dL (30-150); eGFR > 60 See Note
[2025-07-12 07:17] LABS: Albumin, Serum 3.9 gm/dL (3.4-4.8); Albumin/Globulin Ratio 2.1 (1.2-2.2); Alkaline Phosphatase 74 U/L (46-116); Calcium (Corrected) 8.9 mg/dL (8.5-10.1); Globulin 1.9 gm/dL (2.3-3.5)
[2025-07-12] MEDS: SODIUM CHLORIDE 0.9% 1000 ML 1,000 ML 75 ML IV (08:27)
[2025-07-12] MEDS: ASPIRIN EC 81 MG TABEC PO (08:27)
[2025-07-12] MEDS: CLOPIDOGREL BISULFATE 75 MG TABLET PO (08:28)
--- NOTE | 2025-07-12 10:58 | PC.SS ---
Site Acquisition Specialist (PARIS Golden met with the patient at the bedside to complete an initial assessment and discuss a discharge plan. Patient is alert and oriented to person, place, time, and situation, and provided verbal consent to participate in the assessment. Patient's past medical history includes diabetes. The patient presented to the ED for evaluation of dizziness, right-sided numbness, and right leg weakness. Patient is Dani Richardson, 60 y/o Swedish-speaking male residing alone at [address] [place] [address]. Patient designated her uncle, Eusebio Yadav, , as his surrogate medical decision maker. Patient is employed. Patient reports baseline is independent with no DME. Patient's PCP is Dr. Era Tenorio. Patient's discharge plan is home independent; patient drove himself to the hospital, and his car is parked in the parking lot. Patient will drive himself home. Surrogate medical decision maker: Eusebio Ortega, . Discharge plan: Home
--- NOTE | 2025-07-12 14:48 | ESPR_ITS ---
<Statement entered by Shivani Marx MD - 07/24/25 07:58> I reviewed above note and agree with findings and plans. I have also personally examined the patient with medicine team and went over assessment and plan with medical team including administration internship and resident physician. Documentation for date of: 07/12/25 Subjective Subjective Interval history: Patient is seen and examined at bedside in the telemetry. No acute overnight events. Endorsed that his right arm weakness significantly subsided but feels numbness on the dorsal aspect of right forearm and hand Denies weakness in the lower extremity or numbness in the face MRI brain and echo are still pending. Will continue current management. Plan to discharge tomorrow once MRI and echo is done Exam Vital Signs Temp Pulse Resp BP Pulse Ox O2 Del Method 97.1 F 68 65 H 126/79 94 L Room Air 07/12/25 12:00 07/12/25 12:00 07/12/25 12:00 07/12/25 12:00 07/12/25 12:00 07/12/25 12:00 Narrative Exam General: Awake. HEENT: Normocephalic, atraumatic, mucous membranes moist. Heart: Regular rate and rhythm, no murmurs. Lungs: Clear to auscultation with no wheezing or crackles. Abdomen: Soft, nondistended, nontender, positive bowel sounds. ?No guarding or rebound tenderness. Neurologic: Alert and oriented x3, no gross neurological deficit, and patient able to move all 4 extremities. Extremities: No edema. Skin: No rash or ecchymoses. Objective Labs 07/12/25 05:29 07/12/25 05:29 Labs: Laboratory Results - last 24 hr 07/11/25 07/11/25 07/12/25 17:25 19:20 05:29 WBC 7.0 6.3 RBC 5.25 4.29 L Hgb 15.7 12.9 L D Hct 46.8 38.1 L MCV 89 89 MCH 29.9 30.1 MCHC 33.5 33.9 RDW Std Deviation 42.4 42.5 Plt Count 181 144 D Neut % (Auto) 56 51 Lymph % (Auto) 31 36 Major % (Auto) 6 8 Eos % (Auto) 5 5 Baso % (Auto) 1 1 Neut # (Auto) 3.9 3.2 Lymph # (Auto) 2.2 2.3 Major # (Auto) 0.4 0.5 Eos # (Auto) 0.4 0.3 Baso # (Auto) 0.1 0.0 Immature Gran # (Auto) 0.01 H 0.01 H Absolute Nucleated RBC 0.00 0.00 Immature Gran % 0 0 Nucleated RBC % 0 0 PT 10.2 INR 1.0 APTT 26.8 Sodium 142 142 Potassium 4.3 3.7 D Chloride 105 105 Carbon Dioxide 27.9 26.3 Anion Gap 9 11 BUN 8 L 9 Creatinine 0.9 0.8 Estim Creat Clear Calc 98.7 109.7 eGFR > 60 > 60 BUN/Creatinine Ratio 9 L 11 L Glucose [address] Glu mg/dL 166 H Hemoglobin A1c 7.4 H Calculated Osmolality 282 280 Calcium 9.7 8.8 Corrected Calcium 9.7 8.9 Phosphorus 3.5 Magnesium 2.0 1.9 Total Bilirubin 0.5 0.8 AST 26 22 ALT 18 13 Alkaline Phosphatase 126 H 74 D Troponin I < 0.020 B-Natriuretic Peptide < 20 Total Protein 7.6 5.8 Albumin 5.1 H 3.9 D Globulin 2.5 1.9 L Albumin/Globulin Ratio 2.0 2.1 Triglycerides 140 Cholesterol 103 L LDL Cholesterol, Calc 41 HDL Cholesterol 34 L Cholesterol/HDL Ratio 3.0 L TSH 2.66 2.81 Ur Collection Type Catheter Urine Color Lt-Yellow Urine Clarity Clear Urine pH 6.5 Ur Specific Vona 1.015 Urine Protein Negative Urine Glucose (UA) 4+ A Urine Ketones Negative Urine Blood Negative Urine Nitrite Negative Urine Bilirubin Negative Urine Urobilinogen (Auto) Negative Ur Leukocyte Esterase Negative Urine RBC 1 Urine WBC < 1 Ur Squamous Epith Cells < 1 Urine Bacteria None Urine Opiates Screen Negative Urine Fentanyl Screen Negative Ur Barbiturates Screen Negative U Amphetamin/Meth Scrn Negative U Benzodiazepines Scrn Negative U Cocaine Metab Screen Negative U Marijuana (THC) Screen Negative Ethyl Alcohol < 3.0 Quality Measures Quality Measures VTE prophylaxis and stroke Suspected type of Stroke: Non Acute Last known well (date): 07/11/25 Last known well (time): 12:00 Tenecteplase given: Reason(s) Tenecteplase not given: Outside the time window not given Rehab services: PT evaluation ordered VTE Prophylaxis: pharmaceutical Antithrombotic by day 2:: ordered Statin ordered: >75 y/o moderate or high intensity dose Anticoagulation ordered for A-fib or flutter (current or hx): not indicated Assessment & Plan Assessment Current Active Medications: Generic Name Dose Route Start Last Admin Trade Name Freq PRN Reason Stop Dose Admin Acetaminophen 650 mg 07/11/25 18:29 Acetaminophen 325 Mg Tablet PO 08/10/25 18:28 Q6H PRN For Fever>100.4 or Pain 1-3 Aspirin 81 mg 07/12/25 09:00 07/12/25 08:27 Aspirin Ec 81 Mg Tabec PO 08/11/25 08:59 81 mg QDAY JERSON Administration Atorvastatin Calcium 80 mg 07/12/25 21:00 Atorvastatin Calcium 20 Mg Tablet PO 08/11/25 20:59 HS JERSON Clopidogrel Bisulfate 75 mg 07/12/25 09:00 07/12/25 08:28 Clopidogrel Bisulfate 75 Mg Tablet PO 08/11/25 08:59 75 mg QDAY JERSON Administration Dextrose 25 ml 07/11/25 22:52 Dextrose 50%-Water Inj 50 Ml Syringe IV 08/10/25 22:51 Q15MIN PRN BG 50-70 responsive npo pt Dextrose 50 ml 07/11/25 22:52 Dextrose 50%-Water Inj 50 Ml Syringe IV 08/10/25 22:51 Q15MIN PRN BG <50 OR BG <70 & pt unresponsive Glucagon 1 mg 07/11/25 22:52 Glucagon Inj 1 Mg Vial IM Q15MIN PRN BG <70, and no IV access Heparin Sodium (Porcine) 5,000 unit 07/11/25 22:00 07/12/25 14:09 Heparin Sod Inj 5000 Unit/Ml Vial SC 07/25/25 21:59 5,000 unit Q8HR JERSON Administration Insulin Human Lispro 0 unit 07/12/25 07:30 07/12/25 11:16 Insulin Lispro (Admelog) 1 Unit/0.01 Ml Unit SC 08/11/25 07:29 Not Given ACHS [facility] Protocol Labetalol HCl 10 mg 07/11/25 18:36 Labetalol Inj 5 Mg/Ml Vial 20 Ml IVP Q15MIN PRN Hypertensive Emergency Ondansetron HCl 4 mg 07/11/25 18:29 Ondansetron Inj 2 Mg/Ml Inj 2 Ml IVP 08/10/25 18:28 Q6H PRN NAUSEA OR VOMITING Protocol Plan Patient is a Turkish-speaking 60-year-old M with a PMH of [id number]-T2DM who presented on 07/11/2025 with a chief complaint of right sided weakness, headache, and dizziness that began the day prior in the evening. Patient was admitted for the work-up and management of stroke-like symptoms. #Stroke-like symptoms Patient initially presented on 07/11 with right sided weakness, headache, and dizziness that began in the evening of 07/10 07/[address] showed no acute intracranial abnormality 07/11 head/neck CTA also negative PMH of T2DM (HgbA1c 7.4, 07/11/25) and 07/11 admission BP of 177/89 ACSVD Score: 5.7 Given loading dose of aspirin 325 mg x 1 and Plavix 300 mg x 1 in the ED DDx: TIA, acute ischemic stroke, hemiplegic migraine Dx: -Ordered head MRI, pending -Ordered echocardiogram with bubble study, pending -Ordered lipid panel, showed within normal limits except for low HDL -Ordered hemoglobin A1c, showed 7.4 -Ordered TSH, showed 2.66 WNL Rx: -PO atorvastatin 80 mg qHS -PO aspirin 81 mg qD -PO Plavix 75 mg qD for 21 days [07/12--] -PO/AK acetaminophen 650 mg prn for T > 100.3 -Heparin 5K SC q8HR for DVT prophylaxis -Head of bed elevation > 30 degrees -Neurology consulted, appreciate recommendations #Emp-gdhbjan-rtcrpieav-T2DM 07/11 admission blood glucose 115 On home empagliflozin 25 mg PO qD and sitagliptin + metformin hydrochloride (Janumet) 1 tab PO BID Dx: -07/11/25 hemoglobin A1c was 7.4 as previously mentioned Rx: -Insulin sliding scale Hospital Management: Disposition: Admitted to [facility] for the work-up and management of stroke-like symptoms. Diet: Carbohydrate Consistent Low GI Prophylaxis: Not Indicated Bowel Prophylaxis: None DVT Prophylaxis: Heparin 5K SC q8HR CODE STATUS: Full Code Patient plan of care was discussed with the attending physician, Dr. Francisco J Woods, PGY2
--- NOTE | 2025-07-12 17:03 | ESPR_ITS ---
Tele Neuro Progress Note Progress Note Date 07/12/25 [facility] TeleNeurology Consult Services Routine Consult Follow-Up Patient Name:???Dani Richardson Date of :???1965 Identification Number:??? Date of Service:???07/12/2025 16:57:51 Diagnosis?I63.89 - Cerebrovascular accident (CVA) due to other mechanism (HCCC) Impression Patient is a 60 year old man, presenting with headache and dizziness, started 07/10/2025 at 1330 PST. He also experienced right arm and leg numbness/ weakness at same time yesterday. Symptoms were progressive and worse today so patient came to the ED for workup. Not on blood thinners, PMHX of DM. 07/12/25: pending mri review and echo continue supportive care pt/ot/hammerer eval treat dapt x 21 days telemetry neurology will follow Our recommendations are outlined below Disposition :Neurology will follow Subjective still with right arm/leg numbness Imaging mri brain pending eeg pending ? Examination 1A: Level of Consciousness - Alert; keenly responsive?+ 0 1B: Ask Month and Age - Both Questions Right?+ 0 1C: Blink Eyes & Squeeze Hands - Performs Both Tasks?+ 0 2: Test Horizontal Extraocular Movements - Normal?+ 0 3: Test Visual Escudero - No Visual Loss?+ 0 4: Test Facial Palsy (Use Grimace if Obtunded) - Normal symmetry?+ 0 5A: Test Left Arm Motor Drift - No Drift for 10 Seconds?+ 0 5B: Test Right Arm Motor Drift - No Drift for 10 Seconds?+ 0 6A: Test Left Leg Motor Drift - No Drift for 5 Seconds?+ 0 6B: Test Right Leg Motor Drift - No Drift for 5 Seconds?+ 0 7: Test Limb Ataxia (FNF/Heel-Enamorado) - No Ataxia?+ 0 8: Test Sensation - Mild-Moderate Loss: Less Sharp/More Dull?+ 1 9: Test Language/Aphasia - Normal; No aphasia?+ 0 10: Test Dysarthria - Normal?+ 0 11: Test Extinction/Inattention - No abnormality?+ 0 NIHSS Score:?0 NIHSS Free Text :?right sided numbness (face, arm and leg) ? This consult was conducted in real time using interactive audio and video technology. Patient was informed of the technology being used for this visit and agreed to proceed. Patient located in hospital and provider located at home/office setting. Telehealth Neurology consultation was provided. I spent 35 minutes providing telehealth care. This includes time spent for face to face visit via tel emedicine, review of medical records, imaging studies and discussion of findings with providers, the patient and/or family. Dr Maribel Dillard [facility] For Inpatient follow-up with [facility] physician please call [facility] at . As we are not an outpatient service for any post hospital discharge needs please contact the hospital for assistance. If you have any questions for the [facility] physicians or need to reconsult for clinical or diagnostic changes please contact us via [facility] at Signature :?Maribel Dillard ? Most Recent Vital Signs Last Vital Signs Temp 97.1 F 07/12/25 12:00 Pulse 70 07/12/25 14:59 Resp 20 07/12/25 14:59 BP 126/79 07/12/25 12:00 Pulse Ox 94 L 07/12/25 12:00 O2 Del Method Room Air 07/12/25 12:00 Laboratory-Coagulation Panel PT 10.2 Seconds (9.0-12.2) 07/11/25 17: INR 1.0 (0.9-1.3) 07/11/25 17: APTT 26.8 Seconds (22.0-36.0) 07/11/25 17:25
--- NOTE | 2025-07-12 17:33 | PRELIM_ITS ---
MRI of the brain without intravenous gadolinium. July 12, 2025 at 1426 hours Clinical history: Stroke protocol Comparison: No prior study is available for comparison. Findings: There is a tiny of restricted diffusion in the left thalamus. There are minimal periventricular white matter T2 and FLAIR hyperintensities, suggestive of chronic small vessel ischemia. The hippocampal complexes are symmetric. There is no evidence of mass or calcification. There is no blooming to suggest remote bleed or calcification. There is no intracranial hemorrhage or mass effect. The ventricles, basal cisterns and sulci are slightly prominent, suggestive of volume loss. Normal intracranial flow voids are noted. The calvarium, pituitary fossa and cervicomedullary junction appear unremarkable. The visualized paranasal sinuses and mastoid air cells are clear. The seventh and eighth nerve root complexes are normal. Impression: 1. Acute lacunar infarct in the left thalamus. 2. No evidence of hemorrhage, mass or midline shift. 3. Mild volume loss and chronic small vessel ischemic changes. Discussion Details: Results Discussed With : Dr. Marx at 05:24 PM 07/12/2025 Report Electronically Signed By: Ubaldo Tolliver 07/12/2025 5:32:36 PM [EST]
[2025-07-12] MEDS: ATORVASTATIN CALCIUM 20 MG TABLET 80 MG PO (21:05)
[2025-07-13] VITALS: BP 119/75; PULSE 68; PULSE 71; RESP 15; TEMP 36.8; O2SAT 95
[2025-07-13 04:00] VITALS: BP 119/71; PULSE 64; PULSE 67; RESP 20; TEMP 36.4; O2SAT 96
[2025-07-13 05:04] VITALS: BMI 27.6
[2025-07-13 05:13] LABS: Basophils # (Auto) 0.1 Thou/mm3 (0.0-0.2); Basophils % (Auto) 1 % (0-2.5); Eosinophils # (Auto) 0.3 Thou/mm3 (0.0-0.5); Eosinophils % (Auto) 4 % (0-10); Hematocrit 42.4 % (41.0-53.0); Hemoglobin 14.3 g/dL (13.5-16.0); Immature Granulocytes Auto 0.01 Thou/mm3 (0.00-0.00); Lymphocytes # (Auto) 2.0 Thou/mm3 (1.0-4.8); Lymphocytes % (Auto) 33 % (10-50); Mean Corpuscular HGB Conc 33.7 g/dl (31.0-37.0); Mean Corpuscular Hemoglobin 29.6 pg (25.0-35.0); Mean Corpuscular Volume 88 fL (80-100); Monocytes # (Auto) 0.5 Thou/mm3 (0.0-0.8); Monocytes % (Auto) 8 % (0-12); Neutrophils # (Auto) 3.3 Thou/mm3 (1.8-7.7); Neutrophils % (Auto) 54 % (37-80); Nucleated Red Blood Cell # 0.00 Thou/mm3 (0.00-0.00); Nucleated Red Blood Cell % 0 /100 WBC (0); Platelet Count 144 Thou/mm3 (140-440); RDW Standard Deviation 41.1 fL (35.1-43.9); Red Blood Count 4.83 Miln/mm3 (4.50-5.90); White Blood Count 6.1 Thou/mm3 (3.8-10.6)
[2025-07-13 05:57] LABS: Alanine Aminotransferase 13 U/L (10-49); Albumin, Serum 4.3 gm/dL (3.4-4.8); Albumin/Globulin Ratio 2.0 (1.2-2.2); Alkaline Phosphatase 78 U/L (46-116); Anion Gap 10 (7-16); Aspartate Amino Transferase 22 U/L (0-34); BUN/Creatinine Ratio 14 Ratio (12-20); Bilirubin,Total 0.7 mg/dL (0.3-1.2); Blood Urea Nitrogen 11 mg/dL (9-23); Calcium 9.5 mg/dL (8.3-10.6); Calcium (Corrected) 9.5 mg/dL (8.5-10.1); Carbon Dioxide 27.4 mMol/L (20.0-31.0); Chloride 105 mMol/L (98-107); Creatinine (Component) 0.8 mg/dL (0.6-1.3); Estimated Creatinine Clearance 109.1 mL/min (>60); Globulin 2.1 gm/dL (2.3-3.5); Glucose 110 mg/dL (74-106); Osmolality,Calculated 283 (275-295); Potassium 4.2 mMol/L (3.4-5.1); Sodium 142 mMol/L (136-145); Total Protein 6.4 gm/dL (5.7-8.2); eGFR > 60 See Note
[2025-07-13] MEDS: HEPARIN SOD INJ 5000 UNIT/ML VIAL SC (06:05)
[2025-07-13 08:00] VITALS: BP 121/81; PULSE 100; PULSE 65; RESP 11; TEMP 36.4; O2SAT 98
[2025-07-13] MEDS: CLOPIDOGREL BISULFATE 75 MG TABLET PO (08:20)
[2025-07-13] MEDS: ASPIRIN EC 81 MG TABEC PO (08:20)
--- NOTE | 2025-07-13 10:43 | ESDS_ITS ---
<Statement entered by Shivani Marx MD - 07/24/25 08:05> I reviewed above note and agree with findings and plans. I have also personally examined the patient with medicine team and went over assessment and plan with medical team including record label internship and resident physician. Planned Discharge Date 07/13/25 DS: Providers Provider Date of admission: 07/11/25 18:29 Primary care physician: Physician No Primary/Family Admitting Provider: Shivani Marx MD Attending Provider on Admission: Shivani Marx MD Consults: 07/11/25 17:26 Consult to Neurology / Tele-Neurology Routine Comment: Consulting Provider: [facility] Attending Provider on DC: Shivani Marx MD Discharging Provider: Malik Serrano MD DS: Diagnosis Problem List Completed Was Problem List Reviewed/Reconciled?: Yes Hospital Course Hospital Course Hospital course: Summary: Patient is a Thai-speaking 60-year-old M with a PMH of cyx-jaciwfv-lmhbeyqzg-T2DM who presented on 07/11/2025 with a chief complaint of right sided weakness, headache, and dizziness that began the day prior in the evening. Patient was admitted for the work-up and management of stroke-like symptoms. Hospital: During patient's hospital course, he was placed on stroke protocol and treated with atorvastatin PO, aspirin PO, Plavix PO, and Heparin SC DVT prophylaxis for his stroke-like symptoms. 07/12 brain MRI w/ MRA ended up showing an acute lacunar infarct in the left thalamus and bubble study was negative. By 07/13, patient was deemed clinically stabilized and discharged home. Patient is safe to discharge. Further discharge instructions below. -Follow-up with PCP within 1 week of discharge. If you do not have appointment, please follow-up with the [facility] with Dr. Woods. Call [phone] to make an appointment. -Recommended to take Aspirin 81mg once daily, Atorvastatin 40mg at night once daily -Recommended to take Clopidogrel 75mg once daily for 18 more days till 08/01 -Continue rest of the home medications and follow up with your PCP in 1 week for adjustment of diabetes medications -Return to ED if symptoms persist or return #Acute lacunar infarct of left thalamus #Stroke-like symptoms #Right-sided hemiplegia #Pjs-ixvhyhk-usucblsqd-T2DM Status at Discharge Cognitive/Behavioral Status at Discharge: stable Functional Status at Discharge: independent ambulation Overall Status at Discharge: patient is back to baseline Patient's care plan was discussed with my attending, Dr. Marx, and senior resident, Dr. Woods. Malik Serrano, DO Internal Medicine, PGY-1 Time Spent with Patient Time attestation: Total time spent providing and/or coordinating discharge services: Time spent: Greater than 30 minutes Exam Vital Signs Temp Pulse Resp BP Pulse Ox O2 Del Method 97.6 F 65 11 L 121/81 98 Room Air 07/13/25 08:00 07/13/25 08:00 07/13/25 08:00 07/13/25 08:00 07/13/25 08:00 07/13/25 08:00 Narrative Exam General: Awake. HEENT: Normocephalic, atraumatic, mucous membranes moist. Heart: Regular rate and rhythm, no murmurs. Lungs: Clear to auscultation with no wheezing or crackles. Abdomen: Soft, nondistended, nontender, positive bowel sounds. ?No guarding or rebound tenderness. Neurologic: Alert and oriented x3, no gross neurological deficit, and patient able to move all 4 extremities. Extremities: No edema. Skin: No rash or ecchymoses. Discharge Plan Plan Patient Disposition: HOME (Self Care) Patient condition on transfer: Stable Care Plan Goals: -Follow-up with PCP within 1 week of discharge. If you do not have appointment, please follow-up with the [facility] with Dr. Woods. Call [phone] to make an appointment. -Recommended to take Aspirin 81mg once daily, Atorvastatin 40mg at night once daily -Recommended to take Clopidogrel 75mg once daily for 18 more days till 08/01 -Continue rest of the home medications and follow up with your PCP in 1week for adjustment of diabetes medications -Return to ED if symptoms persist or return Prescriptions/Referrals Prescriptions/Med Rec: New aspirin 81 mg capsule 81 mg PO QDAY Qty: 30 2RF clopidogrel 75 mg tablet 75 mg PO QDAY Qty: 18 0RF atorvastatin [Lipitor] 40 mg tablet 40 mg PO HS Qty: 30 2RF Continued Janumet 50-1,000 mg tablet 1 tab PO BID Jardiance 25 mg tablet 25 mg PO DAILY Referrals: No Primary/Family,Physician [Primary Care Provider] Patient/Caregiver Discharge Instructions Education Materials: Stroke: Resources and Support, Stroke: Self-Care, Stroke Self Care After Print Language: Yoruba Stand Alone Forms: Flavia Award Info., Patient Portal Info Letter Discharge Order Discharge Orders: Discharge (Routine); Ordered 07/13/25 Ordered By: Nikunj Woods Quality Discharge Quality Measures VTE prophylaxis and stroke Statin ordered >75 y/o:moderate or high intensity dose on DC: n/a Statin ordered <75 y/o: high intensity dose on DC: yes Statin not ordered due to:: not indicated Anticoagulation ordered for A-fib or flutter (current or hx): not indicated Antithrombotic ordered on DC: not indicated (describe)
[2025-07-13 12:00] VITALS: BP 138/91; PULSE 77; PULSE 83; RESP 13; TEMP 36.3; O2SAT 97
--- NOTE | 2025-07-13 12:54 | PD.TNEUROPRO ---
Tele Neuro Progress Note Progress Note Date 07/13/25 [facility] TeleNeurology Consult Services Routine Consult Follow-Up Patient Name:???RADHA BENNETT Date of :???1965 Identification Number:??? Date of Service:???07/13/2025 12:49:49 Diagnosis?I63.89 - Cerebrovascular accident (CVA) due to other mechanism (HCCC) Impression Patient is a 60 year old man, presenting with headache and dizziness, started 07/10/2025 at 1330 PST. He also experienced right arm and leg numbness/ weakness at same time yesterday. Symptoms were progressive and worse today so patient came to the ED for workup. Not on blood thinners, PMHX of DM. 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 Reconsult if Needed.Outpatient Neurology follow up in 3-6 weeks Subjective no changes; interviewed with aid of conference interpreter Imaging mri brain acute left thalamic stroke CTA H/N with distal left M1 moderate stenosis, distal flow noted ? Examination 1A: Level of Consciousness - Alert; keenly responsive?+ 0 1B: Ask Month and Age - Both Questions Right?+ 0 1C: Blink Eyes & Squeeze Hands - Performs Both Tasks?+ 0 2: Test Horizontal Extraocular Movements - Normal?+ 0 3: Test Visual Escudero - No Visual Loss?+ 0 4: Test Facial Palsy (Use Grimace if Obtunded) - Normal symmetry?+ 0 5A: Test Left Arm Motor Drift - No Drift for 10 Seconds?+ 0 5B: Test Right Arm Motor Drift - No Drift for 10 Seconds?+ 0 6A: Test Left Leg Motor Drift - No Drift for 5 Seconds?+ 0 6B: Test Right Leg Motor Drift - No Drift for 5 Seconds?+ 0 7: Test Limb Ataxia (FNF/Heel-Enamorado) - No Ataxia?+ 0 8: Test Sensation - Mild-Moderate Loss: Less Sharp/More Dull?+ 1 9: Test Language/Aphasia - Normal; No aphasia?+ 0 10: Test Dysarthria - Normal?+ 0 11: Test Extinction/Inattention - No abnormality?+ 0 NIHSS Score:?1 NIHSS Free Text :?right sided numbness (face, arm and leg) ? This consult was conducted in real time using interactive audio and video technology. Patient was informed of the technology being used for this visit and agreed to proceed. Patient located in hospital and provider located at home/office setting. Telehealth Neurology consultation was provided. I spent 35 minutes providing telehealth care. This includes time spent for face to face visit via telemedicine, review of medical records, imaging studies and discussion of findings with providers, the patient and/or family. Dr Maribel Dillard [facility] For Inpatient follow-up with [facility] physician please call [facility] at . As we are not an outpatient service for any post hospital discharge needs please contact the hospital for assistance. If you have any questions for the [facility] physicians or need to reconsult for clinical or diagnostic changes please contact us via [facility] at Signature :?Maribel Dillard ? Most Recent Vital Signs Last Vital Signs Temp 97.6 F 07/13/25 08:00 Pulse 65 07/13/25 08:00 Resp 11 L 07/13/25 08:00 BP 121/81 07/13/25 08:00 Pulse Ox 98 07/13/25 08:00 O2 Del Method Room Air 07/13/25 08:00 Laboratory-Coagulation Panel PT 10.2 Seconds (9.0-12.2) 07/11/25 17:25 INR 1.0 (0.9-1.3) 07/11/25 17:25 APTT 26.8 Seconds (22.0-36.0) 07/11/25 17:25
[2025-07-13 13:55] VITALS: BP 132/93; PULSE 87; RESP 23; TEMP 36.1; O2SAT 96
== END 2025-07-13 14:03 | disposition home or self-care (01) | DRG 45 ==
LOC: SERX 18:38 → SERHOLD 19:17 → S2NX 21:20
PROVIDERS: Admitting Provider Internal Medicine; Emergency Provider Family Medicine; Visit Provider Internal Medicine
DX: I63.81 Other cerebral infarction due to occlusion or stenosis of small artery (principal); E11.9 Type 2 diabetes mellitus without complications; R29.701 NIHSS score 1; G81.91 Hemiplegia, unspecified affecting right dominant side; Z79.82 Long term (current) use of aspirin; Z79.84 Long term (current) use of oral hypoglycemic drugs; Z60.3 Acculturation difficulty
CPT/HCPCS: 36415; 70450; 70496; 70498; 70544; 80053; 80061; 80307; 80320; 81001; 83036; 83735; 83880; 84100; 84443; 84484; 85025; 85610; 85730; 87086; 93306; 96360; 96361; 99285; A4649; J1644; J7030; Q9967; A9270; G0480